=== PATIENT | female | born 1985 | race Caucasian/White ===

== ENCOUNTER 2025-05-22 05:06 | Inpatient (IN) | payer MEDICARE, SELFPAY ==
[2025-05-21 21:43] VITALS: BP 174/116
[2025-05-21 22:48] VITALS: BMI 24.5
[2025-05-21 22:54] VITALS: BP 152/107
[2025-05-21 23:26] VITALS: BP 160/100
[2025-05-22] VITALS (20 sets, daily range): BP systolic 129–185; BP diastolic 82–145; BMI 23.0
[2025-05-22] MEDS: ZOFRAN ODT (ORALLY DISINTEGRATING) 4 MG PO ×2 (01:00→02:59)
[2025-05-22] MEDS: BELBUCA 300 MCG BUCCAL ×5 (01:00→20:29)
--- NOTE | 2025-05-22 01:02 | ED.GENMED ---
History of Present Illness
General
Chief Complaint: Swelling
Source: patient
Exam Limitations: none
Time Seen by Provider: 05/22/25 00:23
Nursing documentation reviewed up to this point in time: agreed with
History of Present Illness
History of Present Illness:
39-year-old female brought in by police for evaluation she was in an Uber, apparently the [employer] driver license reviewing officer was arrested and the police ran the patient's information she had a 4-year-old warrant and she was subsequently arrested patient is a fentanyl
addict, last used at 6pm she has wounds on her bilateral shins, her abdomen, index finger, she was told by her physician recently she should be admitted to the hospital for an infection because when she stands up she gets dizzy--- earlier today her
finger was swollen she took a Bactrim x 1 and it felt better, tells me that she was on methadone previously that does not work for her, tells me she cannot take Suboxone because it makes her heart rate fast although when she was admitted to
[facility] previously she was given 15 mg of IV Dilaudid that made her feel much better she would like that this evening
Phy Exam
Physical Exam
Physical Exam:
Physical Exam
General: Nontoxic disheveled anxious
Neck: No jaundice scar tissue in her neck bilateral
Heart: s1/s2 regular rate and rhythm, no murmur. equal radial pulses.
Lungs: no acute respiratory distress. clear bilaterally
Abdomen: Nontender
Neuro: alert and oriented. no focal neurological deficits
Skin: Black eschar on the right merino and left merino mild erythema without anju fluctuance
Psychiatric: Cooperative disheveled anxious
Extremities: no edema.
Course
Orders/Labs/Results
Orders:
Orders
05/22/25 00:33
Hand, Left 3 View [CR Hand - Left Min 3 Views] Urgent
Comment:
Reason For Exam: swelling wound
Tib/Fib, Right 2 View [CR Leg Tibia/fibula Right 2 Vw] Urgent
Comment:
Reason For Exam: wound
05/22/25 00:34
Ondansetron Orally Disint [Zofran Odt (Orally Disintegrating)] 4 mg PO NOW STA
Test Result ONCE
CR Leg Tibia/fibula Left 2 Vw Urgent
Comment:
Reason For Exam: wound
05/22/25 00:45
Buprenorphine HCl [Belbuca] 300 mcg BUCCAL BID
05/22/25 02:56
Ondansetron Orally Disint [Zofran Odt (Orally Disintegrating)] 4 mg PO NOW STA
05/22/25 03:27
HYDROmorphone [Dilaudid] 1 mg IV NOW STA
05/22/25 03:42
CRP [C-Reactive Protein] Urgent
Complete Blood Count/With Diff Urgent
Comprehensive Metabolic Panel Urgent
ESR [Erythrocyte Sed Rate] Urgent
HCG, Serum Qualitative Screen Urgent
Blood Culture Q30M
ABRAHAN Source: Blood/Venous
Specimen Description:
05/22/25 03:45
Blood Culture Q30M
ABRAHAN Source: Blood/Venous
Specimen Description:
05/22/25 04:13
diazePAM [Valium Injection] 10 mg IM NOW STA
05/22/25 04:20
diazePAM [Valium Injection] 10 mg IV NOW STA
05/22/25 04:38
Admit/Transfer Patient As Directed
Co-Sign Provider:
Level of Care: Inpatient admission
Assign to:: ICU
Physician / Group: Krishna
Diagnosis: Opioid and Xylazine withdrawal
Reason for Hospitalization: opioid and Xylazine withdrawal
Expected length of stay greater than two midnights?: Yes
ELOS- Estimated Length of Stay in days: 2
I certify the patient meets the requirements for IP care: Yes
PRN Pain Medication Management As Directed
May give lesser potent ordered pain med per pt: Yes
preference::
Protocol:: Medication orders for pain may be administered in a
manner that supports deferring to patient preference
when the pt is:
- Requesting an ordered lesser potent pain medication.
Least to most potent pain medications are defined
as: acetaminophen < NSAID < tramadol < opioids
(morphine, oxycodone, hydromorphone).
- Requesting a lesser dose of the same medication IF
ORDERED.
- Requesting a less intrusive route of administration
if both routes are prescribed by the provider (PO <
IV).
05/22/25 04:46
HYDROmorphone [Dilaudid] 2 mg IV NOW STA
05/22/25 04:48
PRN Pain Medication Management As Directed
May give lesser potent ordered pain med per pt: Yes
preference::
Protocol:: Medication orders for pain may be administered in a
manner that supports deferring to patient preference
when the pt is:
- Requesting an ordered lesser potent pain medication.
Least to most potent pain medications are defined
as: acetaminophen < NSAID < tramadol < opioids
(morphine, oxycodone, hydromorphone).
- Requesting a lesser dose of the same medication IF
ORDERED.
- Requesting a less intrusive route of administration
if both routes are prescribed by the provider (PO <
IV).
05/22/25 04:49
CeFAZolin 2 GRAM [Ancef] 2 grams in 10 ml IV NOW
05/22/25 05:03
Fentanyl, Urine Routine
05/22/25 06:54
0.9% Sodium Chloride [Nss (Preservative Free)] See Protocol IV PRN PRN
Clonidine [Catapres] 0.1 mg PO Q6HPRN PRN
HydrOXYZINE [Atarax] 50 mg PO Q6HPRN PRN
Ketorolac [Toradol] 10 mg IV Q6HPRN PRN
Naloxone [Narcan] 0.4 mg IV Q5MPRN PRN
Ondansetron Injectable [Zofran] 4 mg IV Q6HPRN PRN
Oxycodone [Roxicodone] 20 mg PO Q4HPRN PRN
Tizanidine [Zanaflex] 2 mg PO Q6HPRN PRN
05/22/25 06:54
Electrocardiogram (*1) Routine
Reason for Study: QTc Monitoring
Comment: if not already done in ED
Case Management Consult ONCE
Case Management Consult: Other
Comment: opioid withdrawal
WOUND/OSTOMY CONSULT Routine
Reason for Consult: injection site wounds
Medical Records Request [Obtain Records] As Directed
Dates of Information to be Released: 12/23/2024 to 05/21/2025
Type of Information Requested: Entire Record
Obtain Records from: [facility]
DX Deep Vein Thrombosis Video Routine
05/22/25 07:20
diazePAM [Valium Injection] 10 mg IM ONCE PRN PRN
05/22/25 08:00
Buspirone [Buspar] 5 mg PO BID
Clonidine [Catapres] 0.1 mg PO TID
Gabapentin [Neurontin] 800 mg PO TID
Oxycodone Controlled Release [Oxycontin (Controlled Release)] 40 mg PO Q8
Pantoprazole [Protonix] 20 mg PO DAILY
Propranolol [Inderal] 10 mg PO BID
Sertraline HCl [Zoloft] 100 mg PO DAILY
05/22/25 08:51
Urine Drug Abuse Screen Routine
Date Specimen was Collected: 05/22/25
Time Specimen was Collected: 08:50
05/22/25 12:00
Buprenorphine HCl [Belbuca] 300 mcg BUCCAL Q4
05/22/25 13:00
CeFAZolin 2 GRAM [Ancef] 2 grams in 10 ml IV Q8H
05/22/25 16:00
Acetaminophen [Tylenol] 1,000 mg PO Q8
05/22/25 18:00
Enoxaparin Sodium [Lovenox] 40 mg SC QPM
05/22/25 22:00
Quetiapine Fumarate [Seroquel] 200 mg PO HS
05/23/25 03:40
Iron IN AM
Total Iron Binding IN AM
05/23/25 08:00
Buprenorphine [Subutex] 2 mg SL QID
Polyethylene Glycol Powder [Miralax] 17 grams PO DAILY
05/24/25 08:00
Buprenorphine [Subutex] 4 mg SL QID
Oxycodone Controlled Release [Oxycontin (Controlled Release)] 20 mg PO Q8
05/25/25 04:41
Buprenorphine [Subutex] 2 mg SL Q4HPRN PRN
05/25/25 08:00
Buprenorphine [Subutex] 8 mg SL BID@0800,1999
05/26/25 08:00
Buprenorphine [Subutex] 16 mg SL DAILY@0800
Abnormal Lab Results
05/22/25 05/22/25
03:42 05:03
WBC 13.9 H 10^3/uL
(4.8-10.8)
RBC 3.60 L 10^6/uL
(4.20-5.40)
Hgb 8.8 L g/dL
(12.0-16.0)
Hct 27.1 L %
(37.0-47.0)
MCV 75.3 L fL
(81.0-99.0)
MCH 24.4 L pg
(27.0-31.0)
MCHC 32.5 L g/dL
(33.0-37.0)
RDW 16.1 H %
(11.5-14.5)
Plt Count 417 H 10^3/uL
(130-400)
Abs Immat Gran (auto) 0.1 H 10^3/uL
(0-0.05)
Absolute Neuts (auto) 12.8 H 10^3/uL
(1.4-6.5)
Absolute Lymphs (auto) 0.5 L 10^3/uL
(1.2-3.4)
Neutrophils % 92.4 H %
(42.2-75.2)
Lymphocytes % 3.9 L %
(20.5-51.1)
ESR 37 H mm/hour
(0-20)
Creatinine 0.5 L mg/dL
(0.6-1.0)
Glucose 118 H mg/dl
(70-99)
Urine Fentanyl Screen Positive H
(Negative)
05/22/25 03:42
05/22/25 03:42
Vital Signs
Initial and Last Documented VS:
Initial Vital Signs
Temp Pulse Resp BP Pulse Ox
98.7 F 125 15 174/116 100
05/21/25 21:43 05/21/25 21:43 05/21/25 21:43 05/21/25 21:43 05/21/25 21:43
Last Documented Vital Signs
Temp Pulse Resp BP Pulse Ox
98.0 F 113 22 137/106 97
05/24/25 03:14 05/24/25 06:00 05/24/25 06:00 05/24/25 06:00 05/24/25 06:00
Procedures
Central Line
Right Femoral:
Indication for procedure:: IV access
Procedure completed by: Dr. Adama Echevarria
Consent form signed: No
If no, reason: Emergency procedure
Anesthesia: 1% Lidocaine with Epi
Central line lumen: triple
Number of attempts: 3
Central line complications: none
Sterile dressing applied?: Yes
Additional information:
Verbal consent, timeout, ultrasound guidance
*Pulse Oximetry
SaO2: 97
Oxygen Mode of Delivery: Room air
Patient hypoxic: no
*Critical Care Note
Total Time (30-74mins, 75-104mins- exclusive of procedures): 32
Update Note
Update Note:
2 AM update multiple attempts at intravenous access by nursing IV team unsuccessful patient was given sublingual Zofran and buccal buprenorphine
2:40 AM external jugular unable to be cannulated, right femoral unable to access
Right groin triple-lumen placed by Dr. Echevarria with u/s guidance
ED Attending Note
-
Portions of this chart may have been created with voice recognition software.� Occasional wrong word or��sound alike� substitutions may have occurred due to the inherent limitations of voice recognition software.
Discharge Plan
Departure
Patient Disposition: Admit
Date of Disposition: 05/22/25
Time of Disposition: 03:53
Admit to: IMU
Presentation/result/management discussed w/ accepting MD/DO: Hospitalist
Patient with high blood pressure during this ER visit?: Yes
Condition: Fair
Covid-19: Not Applicable
Discharge Problem:
Acute narcotic withdrawal
Interventions
Interventions:
*Risk Screen - Suicide Last Done: 05/21/25 21:43
*General Assessment Last Done: 05/21/25 21:43
*Neglect/Abuse Screening Last Done: 05/21/25 21:43
*ED- Fall Risk Assessment Last Done: 05/22/25 06:45
*ED COVID-19 Vaccine History Last Done: 05/21/25 21:43
*Nursing Disposition Last Done: 05/22/25 06:45
ED- Cardiac Assessment Last Done: 05/21/25 22:55
ED- Pulmonary Assessment Last Done: 05/21/25 22:55
ED-Skin Assessment Last Done: 05/22/25 00:37
Discharge Date and Time
Discharge Date/Time: 05/22/25 06:50
--- NOTE | 2025-05-22 02:45 | VATNOTE ---
MULTIPLE ATTEMPTS TO ESTABLISH A PERIPHERAL IV SITE AND OBTAINED ORDERED LABS W/O SUCCESS. THREE ATTEMPTS TO INSERT A ML WERE ALSO UNSUCCESSFUL. PROVIDER AT BEDSIDE. ATTEMPTED EJ W/O SUCCESS. TO INSERT A FEMORAL LINE WHEN PT OUT OF BATHROOM. VAT TO
FOLLOW. PCN AWARE OF INTERVENTION AND PLAN OF CARE.
[2025-05-22] MEDS: DILAUDID 1 MG IV (03:34)
[2025-05-22 04:02] LABS: Hematocrit 27.1 % (37.0-47.0); Hemoglobin 8.8 g/dL (12.0-16.0); Mean Corp Hgb Conc. 32.5 g/dL (33.0-37.0); Mean Corpuscular Volume 75.3 fL (81.0-99.0); Nucleated Red Blood Cells % 0 %; Platelet Count 417 10^3/uL (130-400); Red Cell Dist. Width 16.1 % (11.5-14.5)
--- NOTE | 2025-05-22 04:15 | HPS.HSE ---
Family Physician
-
Family Physician: Rodolfo Hansen MD
Chief Complaint
-
Finger swelling, opioid dependence/withdrawal
History of Present Illness
This is a 39-year-old with past medical history of narcotic dependence and history of withdrawal with last episode about 6 weeks ago who presents to the emergency department with swelling of the left index finger and acute narcotic withdrawal.
Patient was brought in by police when she was found to have a 4-year-old warrant and was subsequently arrested. She reports longstanding use of fentanyl and her last use was around 6 PM. She states she uses 8-12 bags of fentanyl daily and she
injects directly into the skin including the bilateral lower extremities as well as abdomen and upper extremities. She reported at her last withdrawal episode was 6 weeks ago when she was hospitalized at [facility] and required ICU stay. She says she
did not respond very well to Suboxone but had significant improvement after 50 mg of IV Dilaudid given. She said a longstanding anticoagulation was discontinued and it was unclear why. She was discharged but she did not follow-up with any rehab.
She states that she has previously been on methadone but did not work.
She reports that she had ulceration of left index finger and she applied a bandage about 1 days ago. Over the last 24 hours she reports that she has had increased swelling redness and pain in that finger. She took Bactrim and she reported that the
PMD told her that she needed to go to the hospital.
Medical History
Past Medical History
Past Medical History: Reports Other (Fentanyl dependence, history of DVTs, anxiety/depression, chronic anemia )
Past Surgical History: Reports Bowel Resection, Gynocological, Tonsilectomy and Other (Pneumonectomy)
Social History
Tobacco: Smoker
Alcohol: None
Drug: Narcotics and IVDA
Personal: Single
Living: Nursing Home
Employment: Not Employed
Family History
Family History: Not pertinent
Allergies / Home Medications
Allergies reflects when Allergies were last updated in [employer].
Home Medications with original date entered in [employer]
Allergy/Medication List:
Allergies
Allergy/AdvReac Type Severity Reaction Status Date / Time
Corticosteroids Allergy Unknown Verified 05/21/25 21:48
(Glucocorticoids)
Home Medications
clonidine HCl 0.1 mg tablet 0.1 mg PO TID 05/21/25
quetiapine 200 mg tablet (Seroquel) 200 mg PO HS 05/21/25
sertraline 100 mg tablet (Zoloft) 100 mg PO DAILY 05/21/25
Review of Systems
-
Constitutional: Reports No Symptoms
EENT: Reports No Symptoms
Respiratory: Reports No Symptoms
Cardiac: Reports Diaphoresis
Abdomen/GI: Reports Abdominal Pain, Nausea and Vomiting
: Reports No Symptoms
Musculoskeletal: Reports Joint Pain and Joint Swelling
Skin: Reports Rash
Neurological: Reports Headache
Endocrine: Reports No Symptoms
Hematologic/Lymphatic: Reports No Symptoms
Psych: Reports Anxiety
Physical Exam
Vital Signs
Vital Signs
Temp Pulse Resp BP Pulse Ox
98.7 F 113 13 165/93 96
05/21/25 21:43 05/22/25 04:04 05/22/25 03:00 05/22/25 04:04 05/22/25 04:00
Physical Exam
General: Other (ill appearing, )
HEENT: NormoCephalic, Moist mucous membranes, Atraumatic and PERRLA; No Oxygen
Respiratory: Clear
Cardiac: S1/S2 and Tachycardia; No Murmur or Rub
GI: Soft, Non Tender, Non Distended and Normal Bowel Sounds; No Organomegaly
Rectal: Deferred by Provider
Genito-urinary: Deferred by me
Musculoskeletal: No Clubbing, No Cyanosis and No Edema
Skin: Rash (necrotizing circular lesions on the bilateral lower extremities. There is erythematous swelling of the left index finger. Normal finger ROM.)
Neuro: AO x 3 and Tremors
Psych: Agitated
Laboratory Results
-
05/22/25 03:42
Data Reviewed
-
Lab Data: Labs Reviewed by me
Old Records: Reviewed
Impression/Plan
-
IMPRESSION:
39-year-old with history of opioid dependence coming into the emergency department with swelling of the left index finger and found to be in acute opioid withdrawal. Last opioid use was at 6 PM. She is about 8-12 bags of IV fentanyl a day and
admits to having xylazine in supply. She also admits to Xanax dependence as well as tobacco dependence. Imaging of the involved skeletal regions shows no acute trauma.
PLAN:
Fentanyl withdrawal -acute opioid withdrawal, last used at 6 PM here with cellulitis of the left index finger
- Admit to IMU given severity of withdrawal
- Started on buprenorphine micro dosing protocol with adjunctive medication
- IV fluids, antiemetics
- May need Precedex giving likely xylazine Co. withdrawal
- Chronic injection sites noted, wound care consult did not appear to be acutely infected
Cellulitis -left index finger swelling and erythema. No foreign body. Joint does not appear to be affected with full range of motion. WBC greater than 13
- IV cefazolin for now
- MRSA swab
- Blood cultures afebrile
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
-holding AC for now
- Obtain records from [facility] to determine reason for discontinuation
Anemia -chronic microcytic anemia
-Trend for now
- Iron indices in a.m.
DVT prophylaxis�out of the subcu
CODE STATUS�full code
[2025-05-22 04:21] LABS: HCG, Serum Qualitative Screen Negative
[2025-05-22] MEDS: VALIUM INJECTION 10 MG IV (04:21)
[2025-05-22 04:22] LABS: ALT (SGPT) 13 U/L (0-35); AST (SGOT) 18 U/L (14-36); Albumin 4.0 g/dl (3.5-5.0); Alkaline Phosphatase 90 U/L (38-126); Blood Urea Nitrogen 12 mg/dl (7-17); Calcium 8.9 mg/dl (8.4-10.2); Carbon Dioxide 27 mmol/L (22-30); Chloride 106 mmol/L (98-107); Estimated Creatinine Clearance 119 ml/min; Glucose 118 mg/dl (70-99); Potassium 3.9 mmol/L (3.5-5.1); Sodium 139 mmol/L (135-145); Total Protein 7.3 g/dl (6.3-8.2); eGFR > 60.00
[2025-05-22 04:30] LABS: C-Reactive Protein < 5.00 mg/L (0.0-10.00)
[2025-05-22] MEDS: DILAUDID 2 MG IV (04:58)
[2025-05-22] MEDS: ANCEF 10 IV (04:59)
[2025-05-22] MEDS: COMPAZINE 10 MG IV (05:23)
[2025-05-22] MEDS: BENADRYL 25 MG IV ×3 (06:16→13:42)
[2025-05-22] MEDS: OFIRMEV 100 IV (06:29)
--- NOTE | 2025-05-22 07:11 | CON.INTV ---
Consultation
Consultation Request
Date/Time Consultation Requested: 05/22/25
Date/Time Consultation Performed: 05/22/25
Performing Provider: Rosaline
Reason for Consultation: Overdose
Medical History
-
History of Present Illness:
Patient is a 39-year-old F with past medical history of narcotic dependence and history of withdrawal presenting to ER in acute narcotic withdrawal. Patient was brought in by police when she was found to have a 4-year-old warrant and was
subsequently arrested. She reports longstanding use of fentanyl and her last use was around 6 PM day of admission. She states she uses 8-12 bags of fentanyl daily and she injects directly into the skin including the bilateral lower extremities as
well as abdomen and upper extremities. She reported at her last withdrawal episode was 6 weeks ago when she was hospitalized at [facility] and required ICU stay. She says she did not respond very well to Suboxone but had significant improvement
after 50 mg of IV Dilaudid given. She said a longstanding anticoagulation was discontinued and it was unclear why. She was discharged but she did not follow-up with any rehab. She states that she has previously been on methadone but did not work.
Of note, she has complaints of swelling of the left index finger. She reports that she had ulceration of left index finger and she applied a bandage about 1 days ago. Over the last 24 hours she reports that she has had increased swelling redness
and pain in that finger. She took Bactrim and she reported that the PMD told her that she needed to go to the hospital. On BL LE she has numerous wounds with eschar of various stages of healing.
Past Medical History
Past Medical History: Other (see list below)
Social History
Tobacco: Non-smoker
Alcohol: None
Drug: IVDA
Family History
Family History: Reviewed & Not Pertinent
Allergies / Home Medications
Allergies
Allergy/AdvReac Type Severity Reaction Status Date / Time
Corticosteroids Allergy Unknown Verified 05/21/25 21:48
(Glucocorticoids)
Home Medications
�Medication �Instructions �Recorded �Confirmed �Last Taken �Type
clonidine HCl 0.1 mg tablet 0.1 mg PO TID 05/21/25 05/21/25 Unknown History
quetiapine 200 mg tablet (Seroquel) 200 mg PO HS 05/21/25 05/21/25 Unknown History
sertraline 100 mg tablet (Zoloft) 100 mg PO DAILY 05/21/25 05/21/25 Unknown History
buprenorphine 8 mg-naloxone 2 mg 1 film TID 05/22/25 05/22/25 Unknown History
sublingual film
buspirone 5 mg tablet 5 mg PO BID 05/22/25 05/22/25 Unknown History
gabapentin 400 mg capsule 800 mg PO TID 05/22/25 05/22/25 Unknown History
propranolol 10 mg tablet 10 mg PO BID 05/22/25 05/22/25 Unknown History
Review of Systems
-
History Source: Patient
All other systems: Negative unless noted
Vitals / Labs / Diagnostic Testing
Vital Signs
Temp Pulse Resp BP Pulse Ox
98.8 F 93 16 178/96 98
05/22/25 07:07 05/22/25 07:00 05/22/25 07:00 05/22/25 07:00 05/22/25 06:00
Lab Data
05/22/25 03:42
05/22/25 03:42
Diagnostic Testing:
Physical Exam
-
HEENT: Normocephalic, Anicteric and Moist Mucous Membranes
Cardiovascular: S1/S2 and Regular Rhythm
Respiratory: Clear and Non-Labored Respirations
GI: Soft, Non Distended and Non Tender
Neurology: Awake, Alert, Oriented and No Motor Deficits
Skin: Warm, Dry and Other (skin lesions)
General: Comfortable and Other (NAD)
Assessment
-
Patient is a 39-year-old F with past medical history of narcotic dependence and history of withdrawal presenting to ER in acute narcotic withdrawal. Patient was brought in by police when she was found to have a 4-year-old warrant and was
subsequently arrested. She reports longstanding use of fentanyl and her last use was around 6 PM day of admission. She states she uses 8-12 bags of fentanyl daily and she injects directly into the skin including the bilateral lower extremities as
well as abdomen and upper extremities. She reported at her last withdrawal episode was 6 weeks ago when she was hospitalized at [facility] and required ICU stay. Of note, she has complaints of swelling of the left index finger. On BL LE she has
numerous wounds with eschar of various stages of healing. Admitted to ICU for acute w/d.
Acute narcotic withdrawal
History of fentanyl/xylazine overdose
Leukocytosis
Anemia
Thrombocytosis
urine fentanyl positive
Plan
No current signs of metabolic encephalopathy or MS changes/following commands
She is currently complaining of w/d symptoms, on w/d protocol
History of IVDU, multiple admissions
Pain/sedation: PRN
RASS goals: 0
Hemodynamically stable, not requiring pressors.
Cardiac history reviewed-none
Monitor on telemetry
Oxygen needs: stable on RA
Prior history of lung disease: none
Supplemental O2 as indicated to maintain sats > 89%
No prior chest imaging for review
NPO, resume diet when able
[employer] recommendations
Aspiration precautions, HOB > 30 degrees
Speech therapy eval can be considered if at elevated risk
GI prophylaxis if indicated
Creat at baseline, no history of renal disease
Void trials
Follow urine output, critical I/Os
Replete electrolytes as needed
Mild leukocytosis as noted, she has skin lesions related to IV drug use
Started on empiric antibiotics-for cellulitis coverage
Can likely stop coverage over 5 days
Follow fever trend, WBC count
CBC stable, no signs of bleeding or coagulopathy.
DVT prophylaxis as assessed based on risk, including mechanical SCDs
Can transfuse if indicated for Hb <7, plt < 10
INR WNL
No prior h/o diabetes or thyroid disease
Monitor accuchecks PRN/SS coverage if needed
We will transfer out of ICU, ongoing management for withdrawal per team. We will sign off upon transfer.
Diagnostic Data
Reports and relevant images were personally reviewed.
Critical Care time 51 mins -- The patient is admitted for acute critical illness for the treatment of vital organ failure and/or prevention of further life-threatening conditions. Total care includes time spent in review of history, physical exam,
medications, hemodynamic/ventilator parameters, laboratory data, imaging and discussion with house staff, pharmacy, respiratory therapy, marble setter, and nursing.
[2025-05-22] MEDS: TORADOL 10 MG IV ×2 (07:21→13:43)
[2025-05-22] MEDS: ZOFRAN 4 MG IV ×3 (07:23→23:11)
[2025-05-22] MEDS: ZANAFLEX 2 MG PO ×2 (07:24→15:58)
[2025-05-22] MEDS: BUSPAR 5 MG PO ×2 (07:24→20:28)
[2025-05-22] MEDS: ZOLOFT 100 MG PO (07:24)
[2025-05-22] MEDS: CATAPRES 0.1 MG PO ×4 (07:25→22:31)
[2025-05-22] MEDS: VALIUM INJECTION 10 MG IM (07:39)
[2025-05-22] MEDS: NEURONTIN 800 MG PO ×3 (07:40→22:31)
[2025-05-22] MEDS: INDERAL 10 MG PO ×2 (07:44→17:55)
[2025-05-22] MEDS: UNASYN IV ×3 (07:49→20:27)
[2025-05-22] MEDS: OXYCONTIN (CONTROLLED RELEASE) 40 MG PO ×2 (08:20→15:01)
[2025-05-22] MEDS: PROTONIX 20 MG PO (08:20)
--- NOTE | 2025-05-22 08:31 | W.PN.HOSP.TC ---
Addendum entered and electronically signed by Mukesh De MD 05/22/25 19:54:
Attending Addendum-
I saw and evaluated the patient. I reviewed the resident�s note and agree with findings and plan as documented in the resident�s note. Sub: 'can i get some dilaudid? I feel awful! Im crawling out of my skin and im shaky!' Has been agitated per
nursing.Full 12 point ROS reviewed and negative except as documented Exam: Vitals reviewed in chart GEN-NAD heart tachycardic lungs CTA B/L abd soft NT ND pos BS LE no edema Skin multipl areas of skin ulcerations, left index finger red warm
Plan:
# Fentanyl/Xylazine Withdrawal /OUD - SIRS related to withdrawal
- transfer out of ICU->IMU
- uses 8-16 bags of fentanyl plus tranq per day and 2 bars (4mg) of xanax per day per patient
- cont close monitoring via COWS
- supportive care
- cont buprenorphine micro dosing protocol with adjunctive opioids
- Chronic injection sites noted, wound care consult
# Cellulitis -left index finger
- also with multiple skin ulcerations related to injection of tranq
- cont cefazolin
- MRSA swab
- Blood cultures - P
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
-holding AC for now
-Obtain records from [facility] to determine reason for discontinuation
# Anemia -chronic microcytic anemia
-Trend
# Tobacco Abuse- start cindy patch, advised to quit
# Depression- cont seroquel and sertraline
DVT prophylaxis�lovenox
CODE STATUS�full code
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
Original Note:
Today's Communication/Plan
-
Monitor CBC, CMP
Supportive Care
TT Pharmacist
Assessment / Plan
Assessment / Plan
#History of fentanyl/xylazine overdose
# Acute narcotic withdrawal
-Buprenorphine, IV fluid, Antiemetic, clonidine, oxycodone
-COWS scoring 22- Moderate withdrawal
-Following Buprenorphine Microdosing protocol
-Supportive Care, Monitor VS
-Precedex?
#Cellulitis- left index finger erythema, swelling
-leukocytosis
-Wound culture pending
-MRSA- nose swab pending
#Multiple Skin wounds from Xylazine
-Wound Care Consult
-Dressing as indicated
-Ampicillin Sodium/Sulbactam Sodium
-Mupirocin
#History of multiple DVT's
-Enoxaparin Sodium
-records?
#Microcytic Anemia
Anticipated Discharge: 24 - 48 hours
Subjective/Interval History
-
Date of Service: May 22, 2025
I saw the patient on the bed turning side to side. Looks uncomfortable and agitated. Complaints about severe back pain, abdominal pain, vomiting every 10 mins, having 3 bm last 3hrs. BM has small amount blood reports hemorrhoids. Reports her chest
is pounding, sweating and asks for 15mg dilaudid. She uses 16-18bags fentanyl and 2 bars Xanax daily. She reports smoking every 15mins.
Objective Data
-
Labs:
Laboratory Results
05/22/25
03:42
WBC 13.9 H
Hgb 8.8 L
Hct 27.1 L
Plt Count 417 H
Sodium 139
Potassium 3.9
Chloride 106
Carbon Dioxide 27
BUN 12
Creatinine 0.5 L
Glucose 118 H
Calcium 8.9
Total Bilirubin 0.3
AST 18
ALT 13
Alkaline Phosphatase 90
Vital Signs:
Vital Signs
Temp Pulse Resp BP Pulse Ox
98.8 F 93 16 178/96 98
05/22/25 07:07 05/22/25 07:00 05/22/25 07:00 05/22/25 07:00 05/22/25 06:00
Review of Systems
-
History Source: Patient
Constitutional: Reports Chills
EENT: Reports No Symptoms Reported
Respiratory: Reports No Symptoms
Cardiac: Reports Palpitations
Abdomen/GI: Reports Abdominal Pain, Nausea, Vomiting and Bloody Stools
Breast: Reports Skin Changes
Genitourinary: Reports No Symptoms
Musculoskeletal: Reports Edema and Other
Skin: Reports Rash and Other (crawling feeling)
Neuro: Reports Tremors
Endocrine: Reports No Symptoms
Hematologic / Lymphatic: Reports No Symptoms
Psych: Reports Anxious
Physical Exam
-
General: Appears in Distress, Pain, Chills and Sweats
HEENT: Normocephalic and Atraumatic
Respiratory: Clear to Auscultation
Cardiac: S1/S2 and Tachycardic
Breast: Skin Changes
GI: Soft, Nontender and Nondistended
Rectal: Deferred by Provider
Genito-urinary: Deferred by me
Musculoskeletal: Edema, Right Lower Extrem and Edema, Left Lower Extrem
Skin: Other (multiple ulcers all over the skin)
Neuro: AO x 3
Psych: Agitated
[2025-05-22] MEDS: ATARAX 50 MG PO (08:45)
[2025-05-22] MEDS: ROXICODONE 20 MG PO ×2 (09:27→20:28)
--- NOTE | 2025-05-22 10:02 | PTCARENOTE ---
report received. aaox3. going through active withdrawal. pt tremulous. sinus tach up to 150's. all other signs stable. pt vomiting continuously. prn meds given. (see mar). plan of care updated. 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 will follow opioid withdrawal
protocol. no guards present at this time.
--- NOTE | 2025-05-22 10:16 | WOUNDNOTE ---
L CALF (LATERAL POSTERIOR)
--- NOTE | 2025-05-22 10:17 | WOUNDNOTE ---
[facility] RN note: Patient admitted with opioid and Xylazine withdraw, L index finger swelling/pain. Patient from skilled nursing and is single.
See H&P for complete history.
PMH: narcotic independence, smoker, DVT (Eliquis stopped at [facility]).
Wound Location and type/assessment: Patient admitted with: L index finger scabbed vs dry necrotic ulcer with red ecchymotic skin around it an swelling. No crepitus, no pus expressed. L hand Xray-no significant swelling, no fracture. Bilateral full
thickness leg ulcers from IV injections; L merino dry black eschar detached from skin edges. R merino pale pink with some yellow odorous drainage. Dark red ecchymotic skin lesion from IV drug injection on RLQ. R wrist with scabbed ulcer from IV drug
injection. Couple small dry scabs on legs. Scars on body from previous IV injection wounds.
Appetite: c/o intermittent nausea.
Pressure redistribution devices in place: Centrella Max air bed. She can turn self in bed.
Plan: Wounds cleansed with Vashe wound cleanser, dressing applied to L index finger and legs. Patient states she was using Medihoney at home and has Xeroform gauze at home.
Confirmed orders with hospitalist resident and discussed with HALLE Morrison.
Care plan to be updated and will follow as needed.
Recommend follow up at wound care center upon discharge.
--- NOTE | 2025-05-22 10:58 | CM ---
Opiate withdrawal: Initial assessment completed with patient who lives with her ex-boyfriend in a 2nd floor apartment with 15 steps to enter. 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 No DME or in-home services. No HC-POA,
No VA benefits. Patient has had a psychiatric hospitalization at [facility] for suicide attempt in 2023. No follow-up care. PCP is Dr. Rodolfo Hansen. Pharmacy is [facility]. Discharge POC: TBD. [facility] notified.
[2025-05-22] MEDS: ATIVAN 2 MG PO ×2 (11:37→15:58)
[2025-05-22] MEDS: NICODERM TRANSDERMAL 21 MG TRANSDERM (14:40)
[2025-05-22] MEDS: APRESOLINE 10 MG IV (14:41)
[2025-05-22] MEDS: TYLENOL 1000 MG PO (15:01)
--- NOTE | 2025-05-22 15:39 | PTCARENOTE ---
[facility] office to be notified @ [phone] when pt is dc'd.
[2025-05-22] MEDS: LOVENOX 40 MG SC (17:42)
[2025-05-22] MEDS: TYLENOL 650 MG PO (18:07)
[2025-05-22] MEDS: SEROQUEL 200 MG PO (22:31)
[2025-05-23] VITALS (13 sets, daily range): BP systolic 116–148; BP diastolic 78–118; BMI 22.4
[2025-05-23] MEDS: BELBUCA 300 MCG BUCCAL (00:21)
[2025-05-23] MEDS: TYLENOL 1000 MG PO ×4 (00:21→23:28)
[2025-05-23] MEDS: OXYCONTIN (CONTROLLED RELEASE) 40 MG PO ×4 (00:21→23:28)
[2025-05-23] MEDS: UNASYN IV ×4 (03:24→21:31)
[2025-05-23] MEDS: TORADOL 10 MG IV ×3 (03:24→15:07)
[2025-05-23] MEDS: BENADRYL 25 MG IV ×2 (03:25→09:07)
[2025-05-23] MEDS: ZANAFLEX 2 MG PO ×2 (03:31→18:14)
[2025-05-23 04:17] LABS: Hematocrit 30.1 % (37.0-47.0); Hemoglobin 9.5 g/dL (12.0-16.0); Mean Corp Hgb Conc. 31.6 g/dL (33.0-37.0); Mean Corpuscular Volume 76.6 fL (81.0-99.0); Nucleated Red Blood Cells % 0 %; Platelet Count 394 10^3/uL (130-400); Red Cell Dist. Width 16.4 % (11.5-14.5)
--- NOTE | 2025-05-23 04:37 | PTCARENOTE ---
Pt having periods of restlessness and slight agitation over night. COWS score 11. PRN medications given with positive results. Pt incontinent at times of urine. Pt able to make needs known. Call schaffer within reach. Bed alarm on and in lowest
position. Assessment care and vitals as charted.
[2025-05-23 04:50] LABS: ALT (SGPT) 16 U/L (0-35); AST (SGOT) 47 U/L (14-36); Albumin 4.2 g/dl (3.5-5.0); Alkaline Phosphatase 95 U/L (38-126); Blood Urea Nitrogen 13 mg/dl (7-17); Calcium 9.0 mg/dl (8.4-10.2); Carbon Dioxide 28 mmol/L (22-30); Chloride 100 mmol/L (98-107); Estimated Creatinine Clearance 119 ml/min; Glucose 108 mg/dl (70-99); Iron 114 ug/dl (37-170); Magnesium 1.9 mg/dl (1.6-2.3); Potassium 3.6 mmol/L (3.5-5.1); Sodium 135 mmol/L (135-145); Total Iron Binding Capacity 380 ug/dl (265-497); Total Protein 7.8 g/dl (6.3-8.2); eGFR > 60.00
[2025-05-23] MEDS: ZOFRAN 4 MG IV ×2 (06:30→12:59)
[2025-05-23] MEDS: SUBUTEX 2 MG SL ×4 (07:43→21:34)
[2025-05-23] MEDS: PROTONIX 20 MG PO (07:44)
[2025-05-23] MEDS: NEURONTIN 800 MG PO ×2 (07:44→21:36)
[2025-05-23] MEDS: CATAPRES 0.1 MG PO ×3 (07:45→21:31)
[2025-05-23] MEDS: INDERAL 10 MG PO ×2 (07:45→21:36)
[2025-05-23] MEDS: ZOLOFT 100 MG PO (07:45)
[2025-05-23] MEDS: BUSPAR 5 MG PO ×2 (07:45→21:35)
[2025-05-23] MEDS: MIRALAX 17 GRAMS PO (07:45)
[2025-05-23] MEDS: NICODERM TRANSDERMAL 21 MG TRANSDERM (07:45)
--- NOTE | 2025-05-23 08:22 | W.PN.HOSP.TC ---
Addendum entered and electronically signed by Kristal Yanes MD 05/23/25 14:35:
I saw and evaluated the patient independently. I reviewed the resident�s note and agree with findings and plan as documented by Dr. Mccord.
GENERAL: well developed, well nourished, acutely ill appearing female diaphoretic, nauseous
HEENT: NC/AT
HEART: regular rate and rhythm, +S1, +S2--tachycardic
LUNGS : clear to auscultation bilaterally
ABDOM: soft, nontender, nondistended, + bowel sounds
EXT: no cyanosis, clubbing, or edema
NEUROLOGIC: restless
SKIN: multiple skin wounds from previous IV/skin access points for drugs
Acute fentanyl/xylazine withdrawal--on COWS protocol--cont subutex, oxycodone, did give 1 dose of IV dilaudid, clonidine, zofran, etc--watch breathing and pulse ox
Cellulitis with leukocytosis PLUS multiple skin wounds from Xylazine injections (all POA)- left index finger erythema, swelling--follow blood cultures-- cont unasyn for now--wound care consult
Staph epidermidis bacteremia with new low back pain in an IV drug abuser--may be contaminant but can't ignore at this point--concern for osteomyelitis/abscess --repeat blood cultures until clear--apprec ID input--check MRI L/S spine--may need echo
too--hold for now
Vaginal discharge--Wants to be treated for Chlamydia, Gonorrhea--started doxy and gave 1 dose of IM gentamycin--as per ID, pt agreeable to HIV testing
History of multiple DVT's--Enoxaparin Sodium
anemia likely of chronic disease --no iron deficiency by labs
Depression--cont seroquel, sertraline
DVT proph---lovenox
Code status- full code
Original Note:
Today's Communication/Plan
-
MRI lumbar spine w/o contrast
Gentamycin IM 240mg once
Doxycycline 100mg BID PO , 7 days
Assessment / Plan
Assessment / Plan
#History of fentanyl/xylazine overdose
# Acute narcotic withdrawal
-Buprenorphine, IV fluid, Antiemetic, clonidine, oxycodone
-COWS scoring 9
-Following Buprenorphine Microdosing protocol
-Supportive Care, Monitor VS
-05/23 1 mg IV dilaudid once
#Cellulitis- left index finger erythema, swelling
-leukocytosis
-Wound culture pending
-MRSA- nose swab pending
-blood cx- Staph. epidermidis- ID consulted for drug use bacteremia-> contamination (?)-> repeat bc 05/23
-will repeat Blood culture 05/24
#Vaginal discharge
-Wants to be treated for Chlamydia, Gonorrhea
-Doxycycline 100mg BID, 7Days
-IM Gentamycin 240 mg once
#New back pain
- DD: Bacteremia--> Abcess? Osteomyelitis?
-MRI lumbar spine w/o contrast
#Multiple Skin wounds from Xylazine
-Wound Care Consult
-Dressing as indicated
-Ampicillin Sodium/Sulbactam Sodium
-Mupirocin
#History of multiple DVT's
-Enoxaparin Sodium
-records?
#Microcytic Anemia
-trend
#Depression
cont seroquel, sertraline
DVT prophylaxis-levenox
Code status- full code
Anticipated Discharge: > 48 hours
Subjective/Interval History
-
Date of Service: May 23, 2025
I saw the patient lying in the bed. She is agitated, complains about hot/cold sweats, vomited twice, had 1 loose bm. She asks for help about cravings. She wants 15 mg of Dilaudid. She also has a new lower back pain.
She is concerned about having gonorrhea and chlamydia, requested tx because she has a discharge.
Objective Data
-
Labs:
Laboratory Results
05/23/25
03:40
WBC 14.8 H
Hgb 9.5 L
Hct 30.1 L
Plt Count 394
Sodium 135
Potassium 3.6
Chloride 100
Carbon Dioxide 28
BUN 13
Creatinine 0.5 L
Glucose 108 H
Calcium 9.0
Total Bilirubin 0.6
AST 47 H
ALT 16
Alkaline Phosphatase 95
Vital Signs:
Vital Signs
Temp Pulse Resp BP Pulse Ox
99.0 F 117 23 125/90 100
05/23/25 03:55 05/23/25 04:00 05/23/25 04:00 05/23/25 07:45 05/23/25 04:00
I&O
05/22/25 05/23/25 05/24/25
06:59 06:59 06:59
Intake Total 240 / 240
Output Total 800 / 800
Balance -560 / -560
Review of Systems
-
History Source: Patient
Constitutional: Reports Chills and Weakness
EENT: Reports No Symptoms Reported
Respiratory: Reports No Symptoms
Cardiac: Reports No Symptoms
Abdomen/GI: Reports Nausea and Vomiting
Breast: Reports No Symptoms
Genitourinary: Reports Vaginal Discharge
Musculoskeletal: Reports Edema and Other
Skin: Reports Rash and Other (crawling feeling)
Neuro: Reports Tremors
Endocrine: Reports No Symptoms
Hematologic / Lymphatic: Reports No Symptoms
Psych: Reports Anxious
Physical Exam
-
General: Appears in Distress, Pain, Chills and Sweats
HEENT: Normocephalic and Atraumatic
Respiratory: Clear to Auscultation
Cardiac: S1/S2 and Tachycardic
Breast: Skin Changes
GI: Soft, Nontender and Nondistended
Rectal: Deferred by Provider
Musculoskeletal: Edema, Right Lower Extrem and Edema, Left Lower Extrem
Skin: Other (multiple ulcers all over the skin)
Neuro: AO x 3
Psych: Agitated
--- NOTE | 2025-05-23 09:24 | PTCARENOTE ---
Assumed care of Pt at shift change; Pt seen in bed, sleeping on/off. Noted to have vomited and urinated in bed - cleaned up Pt. Reported still having 'cravings'. COWS ~ 8; AM meds with oxycontin and subutex provided. Pt drowsy at times and
restless at times. NSR, BP stable; HR ~ 120's at rest, 130's with movement. 2L O2 with 100% SpO2; Will continue to monitor and assess.
[2025-05-23] MEDS: BACTROBAN 2% OINTMENT 1 APPLIC TOPICAL (09:57)
[2025-05-23] MEDS: ATIVAN 2 MG PO ×2 (11:15→18:12)
[2025-05-23] MEDS: DILAUDID 1 MG IV (11:52)
--- NOTE | 2025-05-23 13:13 | CON.ID ---
Consultation
-
Date/Time Consultation Requested: 05/23/2025 1128
Date/Time Consultation Performed: 05/23/2025 1300
Requesting Provider: Dr. Mccord
Performing Provider: Dr. Ellis
Reason for Consultation: Staph epi bacteremia
Chief Complaint / Past History
History of Present Illness
Bessie Mckee is a 39-year-old female with a significant past medical history of IVDA being evaluated regarding Staph aureus bacteremia. History is obtained from chart review along with patient interview, although the patient was unable to provide
significant history for me.
The patient presented to the emergency room on 05/22 brought in by police. 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
outstanding and she was also arrested. Thereafter, she was found to have multiple wounds on her body and she was brought to the hospital for further evaluation and detox. She notes that she has longstanding wounds on her left merino and right lower
extremity. More recently, she developed a wound on her left index finger which is somewhat painful.
In the emergency room, she was found to have a leukocytosis. Blood cultures were obtained, which now reveal growth of Staphylococcus epidermidis in 1 out of 4 bottles. Infectious Diseases is asked to comment on further antimicrobial management.
Past History
Additional Past Medical History:
IVDA
DVT
Anxiety/depression
Additional Past Surgical History:
Bowel resection
Tonsillectomy
Pneumonectomy
Allergy History:
Corticosteroids (Glucocorticoids) Allergy (Verified 05/21/25 21:48)
Unknown
Medications Reviewed: Yes
Current Antibiotics:
Unasyn 3 gm IV q.6 hours
Social History
Tobacco: Smoker
Alcohol: None
Drug: Narcotics and IVDA
Personal: Single
Employment: Not Employed
Family History
Family History: Unable to Obtain
Review of Systems
Vital Signs
Temp Pulse Resp BP Pulse Ox
99.1 F 117 23 125/90 100
05/23/25 07:18 05/23/25 04:00 05/23/25 04:00 05/23/25 07:45 05/23/25 04:00
Physical Exam
Physical Exam
Constitutional: Acutely Ill, Chronically Ill and Non-toxic
Head: Normocephalic
Eyes: Pupils Equal, Pupils Round, No Conjunctival Hemorrhage and Sclera Anicteric
Oral: No Thrush and No Ulcers
Cardiovascular: Regular Rate and S1/S2; Negative S3/S4
Pulmonary: Clear and Non Labored; Negative Wheezes or Rales
Gastrointestinal: Soft, Tender (Dermal gangrene area right lower quadrant), Normal Bowel Sounds, No Rebound and No Guarding
Genito-Urinary: Negative Helms
Extremities: Edema; Negative Cyanosis or Erythema
Wounds:
Left proximal tibia area with unstageable wound with overlying eschar. Freely movable and not adherent to bone. Little periwound erythema
Right lateral calf area wound with slough and mild purulence
Left index finger with dry eschar and some dermal gangrene
Lab / Diagnostic Study Results
05/23/25 03:40
05/23/25 03:40
Abs Immat Gran (auto) 0.2 10^3/uL (0-0.05) H 05/23/25 03:40
Absolute Neuts (auto) 12.7 10^3/uL (1.4-6.5) H 05/23/25 03:40
Absolute Lymphs (auto) 1.1 10^3/uL (1.2-3.4) L 05/23/25 03:40
Absolute Monos (auto) 0.7 10^3/uL (0.1-0.6) H 05/23/25 03:40
Absolute Basos (auto) 0.0 10^3/uL (0-0.2) 05/23/25 03:40
Immature Gran % 1.2 % (0-0.5) H 05/23/25 03:40
Neutrophils % 86.1 % (42.2-75.2) H 05/23/25 03:40
Lymphocytes % 7.7 % (20.5-51.1) L 05/23/25 03:40
Monocytes % 4.9 % (1.7-9.3) 05/23/25 03:40
Eosinophils % 0.0 % (0-6) 05/23/25 03:40
Basophils % 0.1 % (0-2) 05/23/25 03:40
ESR 37 mm/hour (0-20) H 05/22/25 03:42
C-Reactive Protein < 5.00 mg/L (0.0-10.00) 05/22/25 03:42
Microbiology Results
Micro:
05/22/25 03:42 Blood Culture - Preliminary
Blood/Venous No Growth in 24 hours- Final report to follow
05/22/25 03:45 Blood Culture - Preliminary
Blood/Venous Staphylococcus epidermidis : 1 of 2 bottles
Gram Stain - Preliminary
05/22/25 07:57 MRSA Screen - Pending
Nose
05/22/2025 X-ray left tib-fib: no significant soft tissue swelling is appreciated. No osteoblastic or osteoclastic lesions are noted. No significant periosteal reaction.
05/22/2025 X-ray right leg: No significant osteoblastic or osteolytic lesions are seen. Small osteophytes within the medial compartment of the right knee.
Assessment / Plan
IVDA and acute withdrawal
Leukocytosis secondary to above
Initial fever without recurrence
Positive blood culture (1 of 4 bottles) with staph epi from ER draw. Contaminant
Multiple wounds (right leg, left merino, left index finger)
Hx DVT
Anxiety/depression
Recommendations:
Positive blood culture is most likely a contaminant. No need to treat.
Continue with Unasyn for the present for skin wounds.
Would continue with local care to the area. Several of these may ultimately need further debridement.
Check HIV (patient has given verbal consent)
Check hep B and hep C serology.
--- NOTE | 2025-05-23 14:26 | CHAP ---
Bessie said, 'Terrible,' when asked how she was doing. She was lethargic during the visit, and said she has no family support. This hog scraper gave assurance that staff is caring about her and wanting the best for her. She welcomed prayer.
Emotional and spiritual support provided, along with assurance of our on-going availability.
[2025-05-23] MEDS: NEURONTIN PO (15:07)
[2025-05-23] MEDS: LOVENOX 40 MG SC (18:14)
[2025-05-23] MEDS: VIBRAMYCIN 100 MG PO (21:34)
[2025-05-23] MEDS: SEROQUEL 200 MG PO (21:35)
[2025-05-24] VITALS (13 sets, daily range): BP systolic 99–144; BP diastolic 72–115; BMI 21.7
--- NOTE | 2025-05-24 02:29 | PTCARENOTE ---
Pt calling 911 in middle of night saying her friend fell in the room and needed help. dispatcher bus and trolley appropriately made aware of Pt situation and having hallucinations. Dispatch reassured there is no need to send police,fire or ems. While on phone
with 911 dispatch multiple RN's to Pt bed side to assess, reorient and give emotional support. Pt able to fall back a sleep with out issue.
[2025-05-24] MEDS: ZANAFLEX 2 MG PO ×2 (03:51→16:17)
[2025-05-24] MEDS: UNASYN IV ×4 (03:51→20:34)
[2025-05-24] MEDS: ROXICODONE 20 MG PO (03:51)
[2025-05-24] MEDS: BACTROBAN 2% OINTMENT 1 APPLIC TOPICAL (04:40)
[2025-05-24 04:41] LABS: Hematocrit 31.4 % (37.0-47.0); Hemoglobin 10.0 g/dL (12.0-16.0); Mean Corp Hgb Conc. 31.8 g/dL (33.0-37.0); Mean Corpuscular Volume 74.6 fL (81.0-99.0); Platelet Count 442 10^3/uL (130-400); Red Cell Dist. Width 16.8 % (11.5-14.5)
[2025-05-24] MEDS: ATIVAN 2 MG PO ×2 (04:45→11:51)
[2025-05-24] MEDS: BENADRYL 25 MG IV ×2 (04:45→23:13)
[2025-05-24 05:03] LABS: ALT (SGPT) 16 U/L (0-35); AST (SGOT) 36 U/L (14-36); Albumin 3.9 g/dl (3.5-5.0); Alkaline Phosphatase 80 U/L (38-126); Blood Urea Nitrogen 21 mg/dl (7-17); Calcium 8.9 mg/dl (8.4-10.2); Carbon Dioxide 31 mmol/L (22-30); Chloride 97 mmol/L (98-107); Estimated Creatinine Clearance 102 ml/min; Glucose 115 mg/dl (70-99); Potassium 3.5 mmol/L (3.5-5.1); Sodium 132 mmol/L (135-145); Total Protein 7.2 g/dl (6.3-8.2); eGFR > 60.00
--- NOTE | 2025-05-24 07:12 | W.PN.HOSP.TC ---
Addendum entered and electronically signed by Kristal Yanes MD 05/24/25 16:05:
I saw and evaluated the patient independently. I reviewed the resident�s note and agree with findings and plan as documented by Dr. Mccord.
GENERAL: well developed, well nourished, acutely ill appearing female appears better today
HEENT: NC/AT
HEART: regular rate and rhythm, +S1, +S2--tachycardic
LUNGS : clear to auscultation bilaterally
ABDOM: soft, nontender, nondistended, + bowel sounds
EXT: no cyanosis, clubbing, or edema
NEUROLOGIC: restless
SKIN: multiple skin wounds from previous IV/skin access points for drugs
Acute fentanyl/xylazine withdrawal--on COWS protocol--cont subutex, oxycodone, clonidine, zofran, etc--watch breathing and pulse ox--had hallucinations--apprec psych--pt wants treatment
Cellulitis with leukocytosis PLUS multiple skin wounds from Xylazine injections (all POA)- left index finger erythema, swelling--follow blood cultures-- cont unasyn for now--wound care consult--possible need for plastic surgery for wound debridement
Staph epidermidis bacteremia with new low back pain in an IV drug abuser--may be contaminant but can't ignore at this point, cultures from 05/23 negative to date--concern for osteomyelitis/abscess --apprec ID input-- MRI L/S spine NORMAL--may need
echo too--hold for now
Vaginal discharge--Wants to be treated for Chlamydia, Gonorrhea--started doxy and gave 1 dose of IM rocephin--HIV pending
History of multiple DVT's--Enoxaparin Sodium
anemia likely of chronic disease --no iron deficiency by labs
Depression--cont seroquel, sertraline
DVT proph---lovenox
Code status- full code
Original Note:
Today's Communication/Plan
-
Psychiatry consult
Consult Plastic surgery on tue wound debridement?
Monitor
Assessment / Plan
Assessment / Plan
#History of fentanyl/xylazine overdose
# Acute narcotic withdrawal
-Buprenorphine, IV fluid, Antiemetic, clonidine, oxycodone
-COWS scoring 9
-Following Buprenorphine Microdosing protocol
-Supportive Care, Monitor VS
-05/23 1 mg IV dilaudid once
-Monitor K level
#Cellulitis- left index finger erythema, swelling
-leukocytosis
- nose swab No MRSA
-blood cx- Staph. epidermidis- ID consulted for drug use bacteremia-> contamination (?)-> repeated (24h (-))
#Multiple Skin wounds from Xylazine
-Wound Care Consult
-Dressing as indicated
-Continue Ampicillin Sodium/Sulbactam Sodium
-Mupirocin
#Hallucination
-Consulted psychiatry
#Vaginal discharge
-Wants to be treated for Chlamydia, Gonorrhea
-Doxycycline 100mg BID, 7Days
-Ceftriaxone 500mg, IM once
#New back pain
- DD: Bacteremia--> Abcess? Osteomyelitis?
-MRI lumbar spine w/o contrast- normal findings
#History of multiple DVT's
-Enoxaparin Sodium
-records?
#Microcytic Anemia
-trend
#Depression
cont seroquel, sertraline
DVT prophylaxis-levenox
Code status- full code
Anticipated Discharge: > 48 hours
Subjective/Interval History
-
Date of Service: May 24, 2025
She is anxious, has extreme cravings, 1 bm, denies vomiting and nausea. She has hallucinations- last night taylor 911 and told them her friend fell on the floor. Says ' give me my keys!!'
Objective Data
-
Labs:
Laboratory Results
05/24/25
04:00
WBC 12.5 H
Hgb 10.0 L
Hct 31.4 L
Plt Count 442 H
Sodium 132 L
Potassium 3.5
Chloride 97 L
Carbon Dioxide 31 H
BUN 21 H
Creatinine 0.7
Glucose 115 H
Calcium 8.9
Total Bilirubin 0.4
AST 36
ALT 16
Alkaline Phosphatase 80
Vital Signs:
Vital Signs
Temp Pulse Resp BP Pulse Ox
98.0 F 113 22 137/106 97
05/24/25 03:14 05/24/25 06:00 05/24/25 06:00 05/24/25 06:00 05/24/25 06:00
I&O
05/23/25 05/24/25 05/25/25
06:59 06:59 06:59
Intake Total 240 / 240 2285 / 2285
Output Total 800 / 800
Balance -560 / -560 2285 / 2285
Review of Systems
-
History Source: Patient
Constitutional: Reports Chills and Weakness
EENT: Reports No Symptoms Reported
Respiratory: Reports No Symptoms
Cardiac: Reports No Symptoms
Abdomen/GI: Reports Abdominal Pain
Breast: Reports No Symptoms
Genitourinary: Reports Vaginal Discharge
Musculoskeletal: Reports Edema and Other
Skin: Reports Rash and Other (crawling feeling)
Neuro: Reports Tremors
Endocrine: Reports No Symptoms
Hematologic / Lymphatic: Reports No Symptoms
Psych: Reports Anxious
Physical Exam
-
General: Appears in Distress, Pain, Chills and Sweats
HEENT: Normocephalic and Atraumatic
Respiratory: Clear to Auscultation
Cardiac: S1/S2 and Tachycardic
Breast: Skin Changes
GI: Soft, Nondistended and Tender
Rectal: Deferred by Provider
Musculoskeletal: Edema, Right Lower Extrem and Edema, Left Lower Extrem
Skin: Other (multiple ulcers all over the skin)
Neuro: AO x 3
Psych: Agitated, Anxious and Other (hallucinations)
[2025-05-24 07:28] LABS: Hepatitis C Antibody Negative (Negative)
--- NOTE | 2025-05-24 08:18 | W.PN.ID1 ---
Date of Service
Date of Service: May 24, 2025
Today's Communication
Continue Unasyn
Assessment / Plan
IVDA and acute withdrawal
Leukocytosis secondary to above
Initial fever without recurrence
Positive blood culture (1 of 4 bottles) with Staph. Epidermidis from ER draw. Contaminant.
Multiple wounds (right leg, left merino, left index finger)
Hx DVT
Anxiety/depression
Recommendations:
Positive blood culture is most likely a contaminant. No need to treat.
Continue with Unasyn for the present for skin wounds.
Would continue with local care to the area. Several of these may ultimately need further debridement.
Check HIV (patient has given verbal consent)
Check hep B and hep C serology.
����������������������������������������������������������
Chief Complaint
-: Bacteremia
Subjective / Review of Systems
Review of Systems: No Fever
Vital Signs / Physical Exam
Vital Signs
Vital Signs
Temp Pulse Resp BP Pulse Ox
98.0 F 113 22 137/106 97
05/24/25 03:14 05/24/25 06:00 05/24/25 06:00 05/24/25 06:00 05/24/25 06:00
Physical Exam
Constitutional: Chronically Ill and Non-toxic
Cardiovascular: S1/S2
Pulmonary: Non Labored
Gastrointestinal: Non Distended
Physical Exam:
Wounds:
Left proximal tibia area with unstageable wound with overlying eschar. Freely movable and not adherent to bone. Little periwound erythema
Right lateral calf area wound with slough and mild purulence
Left index finger with dry eschar and some dermal gangrene
Objective Data
Lab Data
Lab Results
05/24/25 04:00
05/24/25 04:00
ESR 37 mm/hour (0-20) H 05/22/25 03:42
Estimated Creat Clear 102 ml/min 05/24/25 04:00
Total Bilirubin 0.4 mg/dl (0.2-1.3) 05/24/25 04:00
AST 36 U/L (14-36) 05/24/25 04:00
ALT 16 U/L (0-35) 05/24/25 04:00
Alkaline Phosphatase 80 U/L (38-126) 05/24/25 04:00
C-Reactive Protein < 5.00 mg/L (0.0-10.00) 05/22/25 03:42
Most recent labs reviewed.
Micro Results:
05/22/25 03:42 Blood Culture - Preliminary
Blood/Venous No Growth in 48 hours- Final report to follow
05/22/25 07:57 MRSA Screen - Final
Nose No Methicillin Resistant Staphylococcus aureus isolated.
05/23/25 13:18 Blood Culture - Pending
Blood/Venous
05/22/25 03:45 Blood Culture - Preliminary
Blood/Venous Staphylococcus epidermidis
Gram Stain - Preliminary
05/22/2025 X-ray left tib-fib: no significant soft tissue swelling is appreciated. No osteoblastic or osteoclastic lesions are noted. No significant periosteal reaction.
05/22/2025 X-ray right leg: No significant osteoblastic or osteolytic lesions are seen. Small osteophytes within the medial compartment of the right knee.
[2025-05-24] MEDS: MIRALAX 17 GRAMS PO (08:26)
[2025-05-24] MEDS: BUSPAR 5 MG PO ×2 (08:26→20:34)
[2025-05-24] MEDS: ZOLOFT 100 MG PO (08:26)
[2025-05-24] MEDS: NICODERM TRANSDERMAL 21 MG TRANSDERM (08:26)
[2025-05-24] MEDS: SUBUTEX 4 MG SL ×4 (08:26→21:25)
[2025-05-24] MEDS: VIBRAMYCIN 100 MG PO ×2 (08:26→20:34)
[2025-05-24] MEDS: CATAPRES 0.1 MG PO ×3 (08:27→21:24)
[2025-05-24] MEDS: OXYCONTIN (CONTROLLED RELEASE) 20 MG PO ×3 (08:27→23:13)
[2025-05-24] MEDS: TYLENOL 1000 MG PO ×3 (08:27→23:13)
[2025-05-24] MEDS: INDERAL 10 MG PO ×2 (08:27→20:34)
[2025-05-24] MEDS: PROTONIX 20 MG PO (08:27)
[2025-05-24] MEDS: TORADOL 10 MG IV (08:27)
[2025-05-24] MEDS: NEURONTIN PO ×2 (08:28→16:18)
--- NOTE | 2025-05-24 12:35 | CS.PSYCHR ---
Consult Summary - Psychiatry
-
Patient seen by me on 05/24/2025 from 12:35pm-1:10pm
Psychiatry consult for significant Fentanyl and benzo misuse disorders and withdrawal. Chart reviewed and case discussed with primary team. 39-year-old with past history of severe opioid/benzo misuse disorder/withdrawal brought in by police for
swelling of the left index finger and acute narcotic withdrawal. Patient admits to using 8-12 bags of IV fentanyl a day and admits to having xylazine in supply. She injects directly into the skin including bilateral lower and upper extremities and
abdomen. She also uses 2 'Xanax bars' (4mg total) every other day. She reports her last withdrawal episode was approximately 6 weeks ago during which she was hospitalized at [facility] and required ICU stay. She was discharged but she did not
follow-up with any rehab. she states her last rehab was 3 months ago at [facility] where she stayed for 26 days but left early and relapsed. She states that she has previously been on methadone maintenance 130mg daily, but none for the past 4
years. Her longest clean time was on MMT for 1.5 years. She reports a history of bipolar disorder and PTSD. Symptoms are difficult to assess in context of active drug use/withdrawal.
Per nursing, patient has been exhibiting a fluctuant course of confusion with hallucinations and delusions. Last night she called 911 reporting that someone had passed out in her room. She also reported having a prosthetic thumb and a lung removed.
She has intermittent visual hallucinations of people in her room.
UDS + opiates, fentanyl, benzos
MSE- poor eye contact. disheveled. fluctuant cognition. Initially knows she is at [facility] as well as month, year, president. Further in interview she begins having visual hallucinations of birds flying in the room and laughs
inappropriately. Her thought process varies from logical to disorganized. She denies SI/HI. Insight and judgement are poor.
Past psychiatric history- reports diagnoses of bipolar disorder and PTSD. reports one intentional suicide attempt in 2019 with overdose on 'Xanax and 13 bags of dope'. following medications are prescribed by her PCP:
clonidine HCl 0.1 mg tablet 0.1 mg PO TID
quetiapine 200 mg tablet (Seroquel) 200 mg PO HS
sertraline 100 mg tablet (Zoloft) 100 mg PO DAILY
buspar 5mg BID
propranolol 10mg BID
Social hx- Patient was brought in by police when she was found to have a 4-year-old warrant and was subsequently arrested. Live s with ex-boyfriend. 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
D&A history- see above
Family History- denies
A/P- 39 yo female with extensive opioid and benzo misuse disorders and active withdrawal/confusion. Continue fentanyl withdrawal management protocol. Continue current psychiatric medication regimen for now. There is room for dose optimization in the
future but would hold off until acute withdrawal/delirium period has resolved before considering changes. Patient interested in inpatient D&A rehab placement when medically stable. Per case management note, [facility] has been notified. It is to be
determined if this is an option given her legal status.
--- NOTE | 2025-05-24 14:41 | PTCARENOTE ---
Pt with noted hallucinations throughout shift, mentioning seeing and/or hearing people in her room; Talked about friends bringing her cigarettes and someone coming into her room to steal her house keys; Pt found smoking cigarettes in bed - took
lit cigarette from patient and disposed of properly. Security notified to remove cigarettes and transaction manager from Pt. Discussed smoking policy with Pt numerous times prior to incident. Pt has nicotine patch in place on L arm. Will continue to monitor
and assess.
[2025-05-24] MEDS: LOVENOX 40 MG SC (18:17)
[2025-05-24] MEDS: SEROQUEL 200 MG PO (21:25)
[2025-05-24] MEDS: NEURONTIN 800 MG PO (21:25)
[2025-05-25] VITALS (13 sets, daily range): BP systolic 80–147; BP diastolic 56–120
[2025-05-25] MEDS: UNASYN IV ×4 (03:51→20:26)
[2025-05-25] MEDS: ROXICODONE 20 MG PO (04:20)
[2025-05-25] MEDS: ZANAFLEX 2 MG PO (04:20)
[2025-05-25] MEDS: BACTROBAN 2% OINTMENT 1 APPLIC TOPICAL (04:48)
[2025-05-25 04:58] LABS: Hematocrit 33.3 % (37.0-47.0); Hemoglobin 10.9 g/dL (12.0-16.0); Mean Corp Hgb Conc. 32.7 g/dL (33.0-37.0); Mean Corpuscular Volume 75.5 fL (81.0-99.0); Platelet Count 462 10^3/uL (130-400); Red Cell Dist. Width 16.6 % (11.5-14.5)
[2025-05-25 05:23] LABS: Blood Urea Nitrogen 26 mg/dl (7-17); Calcium 8.9 mg/dl (8.4-10.2); Carbon Dioxide 31 mmol/L (22-30); Chloride 97 mmol/L (98-107); Estimated Creatinine Clearance 119 ml/min; Glucose 131 mg/dl (70-99); Potassium 3.4 mmol/L (3.5-5.1); Sodium 133 mmol/L (135-145); eGFR > 60.00
--- NOTE | 2025-05-25 05:50 | PTCARENOTE ---
Pt appearing to get rest through out the night. Respirations even unlabored spo2 97% ra. Pt having more frequent moments of clarity, remembering she called 911 the night before and that she tried smoking in the hospital. Pt also explaining she knows
she is having auditory and visual hallucinations at times. Pt also expressed she feels that she is 'getting better every day'', also saying 'i can never touch that shit again'. Pt becoming tearful. Emotional support given. Call schaffer within reach,
bed alarm on and in lowest position.
--- NOTE | 2025-05-25 07:33 | W.PN.HOSP.TC ---
Today's Communication/Plan
-
[id number] Seroquel
Senna, Simethicon
Plastic surgery consult for sunday
Assessment / Plan
Assessment / Plan
#History of fentanyl/xylazine overdose
# Acute narcotic withdrawal
-Buprenorphine, IV fluid, Antiemetic, clonidine, oxycodone
-COWS scoring 9
-Following Buprenorphine Microdosing protocol
-Supportive Care, Monitor VS
-05/23 1 mg IV dilaudid once
-Monitor K level-- repleted
-Psych TT: 200 mg Seroquel for sleeping difficulty
-Ordered ECG
-Simethicon prn, Senna BID
#Cellulitis- left index finger erythema, swelling
-leukocytosis
- nose swab No MRSA
-blood cx- Staph. epidermidis- ID consulted for drug use bacteremia-> contamination (?)-> repeated (24h (-))
#Multiple Skin wounds from Xylazine
-Wound Care Consult
-Dressing as indicated
-Continue Ampicillin Sodium/Sulbactam Sodium
-Mupirocin
-ID- several of woumds need further debridement-- Will consult Plastic surgery on Sunday
#Hallucination
-Consulted psychiatry
#Vaginal discharge
-Wants to be treated for Chlamydia, Gonorrhea
-Doxycycline 100mg BID, 7Days
-Ceftriaxone 500mg, IM once
#New back pain
- DD: Bacteremia--> Abcess? Osteomyelitis?
-MRI lumbar spine w/o contrast- normal findings
#History of multiple DVT's
-Enoxaparin Sodium
-records?
#Microcytic Anemia
-trend
#Depression
cont seroquel, sertraline
DVT prophylaxis-levenox
Code status- full code
Anticipated Discharge: > 48 hours
Subjective/Interval History
-
Date of Service: May 25, 2025
Overnight she had difficulty sleeping. She is still hallucinating- taking dope putting it on her then it dissappears. She broke her front tooth does not know how it happened. She states bad cravings, requests more buprenorphine. She also states
abdominal pain on the LLQ and extremely stinky gas. No bm since yesterday. Has been consuming only fruits and juice. Requested vanilla ensure. Some nausea, denies vomiting.
Objective Data
-
Labs:
Laboratory Results
05/25/25
04:45
WBC 10.1
Hgb 10.9 L
Hct 33.3 L
Plt Count 462 H
Sodium 133 L
Potassium 3.4 L
Chloride 97 L
Carbon Dioxide 31 H
BUN 26 H
Creatinine 0.6
Glucose 131 H
Calcium 8.9
Vital Signs:
Vital Signs
Temp Pulse Resp BP Pulse Ox
98.5 F 106 21 112/86 97
05/25/25 02:11 05/25/25 06:00 05/25/25 06:00 05/25/25 06:00 05/24/25 21:13
I&O
05/24/25 05/25/25 05/26/25
06:59 06:59 06:59
Intake Total 2285 / 2285 2160 / 2160
Output Total 450 / 450
Balance 2285 / 2285 1710 / 1710
Review of Systems
-
History Source: Patient
Constitutional: Reports Sleep Disturbance
EENT: Reports No Symptoms Reported
Respiratory: Reports No Symptoms
Cardiac: Reports No Symptoms
Abdomen/GI: Reports Abdominal Pain and Nausea
Breast: Reports No Symptoms
Genitourinary: Reports Vaginal Discharge
Skin: Reports Rash (wounds)
Neuro: Reports No Symptoms
Endocrine: Reports No Symptoms
Hematologic / Lymphatic: Reports No Symptoms
Psych: Reports Anxious
Physical Exam
-
General: Appears in Distress
HEENT: Normocephalic and Atraumatic
Respiratory: Clear to Auscultation
Cardiac: S1/S2 and Tachycardic
Breast: Skin Changes
GI: Soft, Nondistended and Tender
Rectal: Deferred by Provider
Skin: Other (multiple ulcers all over the skin)
Neuro: AO x 3
Psych: Agitated, Anxious and Other (hallucinations)
[2025-05-25] MEDS: BUSPAR 5 MG PO ×2 (08:36→20:25)
[2025-05-25] MEDS: ZOLOFT 100 MG PO (08:36)
[2025-05-25] MEDS: SUBUTEX 8 MG SL ×2 (08:36→20:25)
[2025-05-25] MEDS: CATAPRES 0.1 MG PO ×3 (08:36→20:25)
[2025-05-25] MEDS: INDERAL 10 MG PO ×2 (08:36→20:25)
[2025-05-25] MEDS: PROTONIX 20 MG PO (08:36)
[2025-05-25] MEDS: VIBRAMYCIN 100 MG PO ×2 (08:36→20:26)
[2025-05-25] MEDS: TYLENOL 1000 MG PO ×2 (08:36→16:32)
[2025-05-25] MEDS: MIRALAX 17 GRAMS PO (08:37)
[2025-05-25] MEDS: NICODERM TRANSDERMAL 21 MG TRANSDERM (08:37)
[2025-05-25] MEDS: NEURONTIN PO ×2 (08:38→16:35)
[2025-05-25] MEDS: KCL 270 MEQ IV (09:02)
[2025-05-25] MEDS: ATIVAN 2 MG PO ×2 (11:26→17:46)
[2025-05-25] MEDS: SUBUTEX 2 MG SL ×2 (12:23→16:34)
[2025-05-25] MEDS: MYLICON 80 MG PO ×2 (12:24→20:25)
[2025-05-25] MEDS: SENOKOT-S PO (12:30)
--- NOTE | 2025-05-25 14:37 | W.PN.UPDATE ---
Update Note
Progress Note Update
Seen by me on 05/25/2025 from 2:20pm-2:35pm
Psychiatry follow up. Contacted by primary team that patient is threatening to leave AMA because she wants to smoke a cigarette. Patient was offered nicotine gum and is agreeable. She also admits to feeling anxious and is requesting increase in
Ativan or addition of Klonopin. Explained that addition of benzos would not be recommended at this time. We discussed option to add low dose seroquel as a PRN to help with acute anxiety. She is then requesting increase in nighttime seroquel to 400mg
stating this dose helped her with sleep in the past. We discussed risk of increasing so rapidly and agreed to increase to 250mg HS for now. We also discussed that her other medications for anxiety including buspar, clonidine and propranolol can
eventually be optimized in the future to help manage condition better in the long run. We discussed how restlessness, anxiety, insomnia, irritability etc are very common symptoms during acute withdrawal period and protocol is being followed to
manage them. She understands. She states she is willing to stay and understands that plan is for transfer to [facility] from here when medically stable.
A/P- 39 yo female with extensive opioid and benzo misuse disorders and active withdrawal/confusion. Continue withdrawal management protocol. Increase HS seroquel to 250mg. Start Seroquel 25mg q6 hours PRN anxiety. Check EKG in Am for qtc monitoring.
Give nicotine gum in addition to patch.There is room for further dose optimization of psychiatric medications in the future but would hold off until acute withdrawal/delirium period has resolved before considering changes. Will continue to monitor.
[2025-05-25] MEDS: SEROQUEL 25 MG PO (14:46)
--- NOTE | 2025-05-25 14:50 | PTCARENOTE ---
Pt rang call karime and requested to speak with nursing supervisor orchard. Pt stated that she wants to go outside to smoke and needs to speak with supervisor orchard. This nurse had previously educated Pt on smoking policy and that she was not allowed to leave the
property with her central line and in her current state while receiving treatment here. Pt currently wearing 21 Nicotine patch; Nursing supervisor orchard notified and s/w Pt - Pt was offered PRN anxiety meds on NOV and the option to get an order for
nicotine gum - Pt refused interventions and requested to sign out AMA. Hospitalist and residents made aware - discussed options with Pt; Pt agreed to wait until she spoke with psychiatrist before leaving. Dr. Oseguera came to speak with Pt and she
agreed to stay. New PRN seroquel administered and nicotine gum provided. Will continue to monitor and assess.
[2025-05-25] MEDS: BENADRYL 25 MG IV (17:46)
[2025-05-25] MEDS: LOVENOX 40 MG SC (17:46)
[2025-05-25] MEDS: SEROQUEL 250 MG PO (20:24)
[2025-05-25] MEDS: NEURONTIN 800 MG PO (20:26)
[2025-05-25] MEDS: SENOKOT-S 1 TABLET PO (20:26)
--- NOTE | 2025-05-25 21:55 | PTCARENOTE ---
Received pt at change of shift. Drowsy but easily arousable. Fully oriented. Slightly diaphoretic. ST on monitor. Able to take all medications. Pt states that she found out her boyfriend was cheating on her with her friend and saw them when
she drove home earlier. When reminded that she in fact did NOT leave the hospital today she appeared to be surprised and said, 'there I go hallucinating again.' Pt able to go back to sleep with little difficulty. Bed alarm active. Call schaffer
within reach.
[2025-05-25] MEDS: NSS 250 IV (22:40)
--- NOTE | 2025-05-25 22:51 | PTCARENOTE ---
BPs soft 80s/60s with MAPs in the high 60s. LICENSING MANAGER notified. 250 ml bolus ordered; infusing now.
[2025-05-26] VITALS (9 sets, daily range): BP systolic 100–144; BP diastolic 71–106
[2025-05-26] MEDS: TYLENOL PO (00:39)
[2025-05-26] MEDS: UNASYN IV ×3 (03:47→16:57)
[2025-05-26 04:39] LABS: Hematocrit 31.1 % (37.0-47.0); Hemoglobin 9.9 g/dL (12.0-16.0); Mean Corp Hgb Conc. 31.8 g/dL (33.0-37.0); Mean Corpuscular Volume 76.4 fL (81.0-99.0); Nucleated Red Blood Cells % 0 %; Platelet Count 409 10^3/uL (130-400); Red Cell Dist. Width 16.9 % (11.5-14.5)
[2025-05-26 04:51] LABS: ALT (SGPT) < 10 U/L (0-35); AST (SGOT) 20 U/L (14-36); Albumin 3.2 g/dl (3.5-5.0); Alkaline Phosphatase 57 U/L (38-126); Blood Urea Nitrogen 21 mg/dl (7-17); Calcium 8.0 mg/dl (8.4-10.2); Carbon Dioxide 31 mmol/L (22-30); Chloride 102 mmol/L (98-107); Estimated Creatinine Clearance 119 ml/min; Glucose 97 mg/dl (70-99); Potassium 3.9 mmol/L (3.5-5.1); Sodium 133 mmol/L (135-145); Total Protein 6.1 g/dl (6.3-8.2); eGFR > 60.00
[2025-05-26] MEDS: SUBUTEX 2 MG SL ×3 (06:03→16:58)
--- NOTE | 2025-05-26 07:21 | W.PN.HOSP.TC ---
Today's Communication/Plan
-
telemetry
PT consult
IV Iron
MRI with and w/o contrast of left index finger+left tibia
Assessment / Plan
Assessment / Plan
#History of fentanyl/xylazine overdose
# Acute narcotic withdrawal
-Buprenorphine, IV fluid, Antiemetic, clonidine, oxycodone
-COWS scoring 9
-Following Buprenorphine Microdosing protocol
-Supportive Care, Monitor VS
-05/23 1 mg IV dilaudid once
-Monitor K level-- repleted
-Psych TT: 200 mg Seroquel for sleeping difficulty +50 mg
-Ordered ECG- QTc 465
-Simethicon prn, Senna BID
-05/26- Seroquel 25mg PRN
-Consult PT
-move to telemetry
#Cellulitis- left index finger erythema, swelling
-leukocytosis
- nose swab No MRSA
-blood cx- Staph. epidermidis- ID consulted for drug use bacteremia-> contamination (?)-> repeated (24h (-))
-ordered MRI with and w/o contrast for left index finger + left tibia
#Microcytic anemia
-Replete Iron IV
#Multiple Skin wounds from Xylazine
-Wound Care Consult
-Dressing as indicated
-Continue Ampicillin Sodium/Sulbactam Sodium
-Mupirocin
-ID- several of wounds need further debridement--consult Plastic surgery
#Hallucination
-Consulted psychiatry
#Vaginal discharge
-Wants to be treated for Chlamydia, Gonorrhea
-Doxycycline 100mg BID, 7Days
-Ceftriaxone 500mg, IM once
#New back pain
- DD: Bacteremia--> Abcess? Osteomyelitis?
-MRI lumbar spine w/o contrast- normal findings
#History of multiple DVT's
-Enoxaparin Sodium
-records?
#Depression
cont seroquel, sertraline
DVT prophylaxis-levenox
Code status- full code
Anticipated Discharge: 24 - 48 hours
Subjective/Interval History
-
Date of Service: May 26, 2025
Yesterday she has been requesting cigarettes and to take her outside. When declined, she wanted to leave against medical advise and wished going to the detention. She was offered nicotine gums and psych consulted. She decided to stay.
Today she reports feeling hopeless, depressed and miserable. She was able to sleep good last night. She feels nausea, gas symptoms improved and denies vomiting. No hallucinations since this morning. She broke her tooth while chewing on fruit. Denies
toothache.
Objective Data
-
Labs:
Laboratory Results
05/26/25
03:51
WBC 6.8
Hgb 9.9 L
Hct 31.1 L
Plt Count 409 H
Sodium 133 L
Potassium 3.9
Chloride 102
Carbon Dioxide 31 H
BUN 21 H
Creatinine 0.6
Glucose 97
Calcium 8.0 L
Total Bilirubin 0.3
AST 20
ALT < 10
Alkaline Phosphatase 57
Vital Signs:
Vital Signs
Temp Pulse Resp BP Pulse Ox
97.9 F 104 17 123/90 98
05/26/25 03:08 05/26/25 04:00 05/26/25 04:00 05/26/25 04:00 05/25/25 21:17
I&O
05/25/25 05/26/25 05/27/25
06:59 06:59 06:59
Intake Total 2160 / 2160 490 / 490
Output Total 450 / 450
Balance 1710 / 1710 490 / 490
Review of Systems
-
History Source: Patient
Constitutional: Reports Weakness
EENT: Reports No Symptoms Reported
Respiratory: Reports No Symptoms
Cardiac: Reports No Symptoms
Abdomen/GI: Reports Abdominal Pain and Nausea
Breast: Reports No Symptoms
Genitourinary: Reports No Symptoms
Musculoskeletal: Reports Muscle Weakness
Skin: Reports Rash (wounds)
Neuro: Reports No Symptoms
Endocrine: Reports No Symptoms
Hematologic / Lymphatic: Reports No Symptoms
Psych: Reports Anxious
Physical Exam
-
General: Appears in Distress
HEENT: Normocephalic and Atraumatic
Respiratory: Clear to Auscultation
Cardiac: S1/S2 and Tachycardic
Breast: Skin Changes
GI: Soft, Nondistended and Tender
Rectal: Deferred by Provider
Musculoskeletal: No Edema
Skin: Warm and Other (multiple ulcers all over the skin)
Neuro: AO x 3
Psych: Agitated, Depressed, Anxious and Other (hallucinations)
[2025-05-26] MEDS: BACTROBAN 2% OINTMENT 1 APPLIC TOPICAL (08:27)
[2025-05-26] MEDS: NEURONTIN 800 MG PO ×2 (08:28→22:23)
[2025-05-26] MEDS: NICODERM TRANSDERMAL 21 MG TRANSDERM ×2 (08:28→22:19)
[2025-05-26] MEDS: VIBRAMYCIN 100 MG PO ×2 (08:28→22:20)
[2025-05-26] MEDS: MYLICON 80 MG PO ×2 (08:29→22:20)
[2025-05-26] MEDS: SUBUTEX 16 MG SL (08:29)
[2025-05-26] MEDS: CATAPRES 0.1 MG PO ×3 (08:29→22:32)
[2025-05-26] MEDS: TYLENOL 1000 MG PO ×2 (08:29→15:25)
[2025-05-26] MEDS: MIRALAX PO (08:30)
[2025-05-26] MEDS: INDERAL 10 MG PO ×2 (08:30→22:32)
[2025-05-26] MEDS: SENOKOT-S 1 TABLET PO ×2 (08:30→22:19)
[2025-05-26] MEDS: PROTONIX 20 MG PO (08:30)
[2025-05-26] MEDS: ZOLOFT 100 MG PO (08:30)
[2025-05-26] MEDS: BUSPAR 5 MG PO ×2 (08:30→22:21)
[2025-05-26] MEDS: ATIVAN 2 MG PO ×3 (08:34→17:15)
[2025-05-26] MEDS: BENADRYL 25 MG IV ×2 (09:01→22:55)
[2025-05-26 09:04] LABS: Iron 30 ug/dl (37-170)
[2025-05-26 09:13] LABS: Total Iron Binding Capacity 330 ug/dl (265-497)
--- NOTE | 2025-05-26 09:29 | PTCARENOTE ---
Recd a call from Patrick Hung from [facility] [employer] [phone]. He states that someone needs to call [facility] Office when she is leaving, planned D/C or AMA. The number during business hours is [phone] after hours/weekends
[phone]. This info shared with Nursing Sup and Managers.
--- NOTE | 2025-05-26 09:32 | W.PN.ID1 ---
Date of Service
Date of Service: May 26, 2025
Today's Communication
Continue Unasyn. Local care to wounds. Check MRI as below�
Assessment / Plan
IVDA and acute withdrawal
Leukocytosis secondary to above
Initial fever without recurrence
Positive blood culture (1 of 4 bottles) with Staph. Epidermidis from ER draw. Contaminant.
Multiple wounds (right leg, left merino, left index finger)
Hx DVT
Anxiety/depression
Recommendations:
Positive blood culture is most likely a contaminant. No need to treat.
Continue with Unasyn for the present for skin wounds.
Would continue with local care to the area. Several of these may ultimately need further debridement.
Hep C antibody negative. HIV antibody pending.
Patient reports that wounds have been present for approximately 4 months. Given that they have been present for so long, will check MRI of left mid tibia, along with left index finger to assure no underlying osteomyelitis.
����������������������������������������������������������
Chief Complaint
-: Bacteremia and Other (Multiple wounds from 'Tranq' injection)
Subjective / Review of Systems
Patient seen and examined. Reports some nausea today. Denies wound pain except when touched.
Review of Systems: No Fever and No Chills
Vital Signs / Physical Exam
Vital Signs
Vital Signs
Temp Pulse Resp BP Pulse Ox
98.2 F 122 17 144/106 98
05/26/25 07:36 05/26/25 08:30 05/26/25 04:00 05/26/25 08:30 05/25/25 21:17
Physical Exam
Constitutional: Chronically Ill and Non-toxic
Cardiovascular: Regular Rate and S1/S2
Pulmonary: Non Labored
Gastrointestinal: Non Distended
Physical Exam:
Wounds:
Left proximal tibia area with unstageable wound with overlying eschar. Freely movable and not adherent to bone. Little periwound erythema.
Right lateral calf area wound very superficial with slough and granular base. Minimal purulence.
Left index finger with dry eschar and some dermal gangrene. Minimal periwound erythema.
Objective Data
Lab Data
Lab Results
05/26/25 03:51
05/26/25 03:51
ESR 37 mm/hour (0-20) H 05/22/25 03:42
Estimated Creat Clear 119 ml/min 05/26/25 03:51
Total Bilirubin 0.3 mg/dl (0.2-1.3) 05/26/25 03:51
AST 20 U/L (14-36) 05/26/25 03:51
ALT < 10 U/L (0-35) 05/26/25 03:51
Alkaline Phosphatase 57 U/L (38-126) 05/26/25 03:51
C-Reactive Protein < 5.00 mg/L (0.0-10.00) 05/22/25 03:42
Most recent labs reviewed.
Micro Results:
05/25/25 04:45 Blood Culture - Preliminary
Blood/Venous No Growth in 24 hours- Final report to follow
05/22/25 03:42 Blood Culture - Preliminary
Blood/Venous No Growth in 4 days- Final report to follow
05/23/25 13:18 Blood Culture - Preliminary
Blood/Venous No Growth in 48 hours- Final report to follow
05/22/25 03:45 Blood Culture - Preliminary
Blood/Venous Staphylococcus epidermidis
Additional testing on request
Gram Stain - Preliminary
05/22/25 07:57 MRSA Screen - Final
Nose No Methicillin Resistant Staphylococcus aureus isolated.
05/22/2025 X-ray left tib-fib: no significant soft tissue swelling is appreciated. No osteoblastic or osteoclastic lesions are noted. No significant periosteal reaction.
05/22/2025 X-ray right leg: No significant osteoblastic or osteolytic lesions are seen. Small osteophytes within the medial compartment of the right knee.
Care Review
Plan reviewed with: Physician (Resident)
[2025-05-26] MEDS: ZOFRAN 4 MG IV (09:38)
[2025-05-26 10:12] LABS: Ferritin 13.0 ng/ml (6.24-137)
[2025-05-26 10:43] LABS: Folate 7.5 ng/ml (2.76-20); Vitamin B12 501 pg/ml (239-931)
--- NOTE | 2025-05-26 11:55 | PTCARENOTE ---
Rec'd pt this AM. multiple complaints of being uncomfortable but relieved with current pain regimen. Pt with nausea and vomitting, relieved with zofran and pt able to eat all her lunch meal. Pt given PRN meds as ordered with relief.
[2025-05-26] MEDS: FERRLECIT 110 MG IV (13:55)
[2025-05-26] MEDS: THERAGRAN 1 TABLET PO (15:25)
--- NOTE | 2025-05-26 15:27 | CM ---
Opiate withdrawal. Wounds. IV/AB. Discharge POC: [facility] following. Therapy no skilled PT needs.
[2025-05-26] MEDS: NEURONTIN PO (15:29)
[2025-05-26] MEDS: LOVENOX 40 MG SC (17:15)
--- NOTE | 2025-05-26 17:46 | PTCARENOTE ---
Pt downgraded to tele and will be transferred to [facility] after she eats her dinner. Report given to HALLE Sargent.
[2025-05-26] MEDS: SEROQUEL 250 MG PO (22:26)
[2025-05-27] VITALS (7 sets, daily range): BP systolic 131–160; BP diastolic 81–115; PULSE 114; O2SAT 99
[2025-05-27] MEDS: UNASYN IV ×5 (00:10→22:09)
[2025-05-27] MEDS: TYLENOL PO ×5 (00:10→23:10)
[2025-05-27 04:40] LABS: Hematocrit 29.7 % (37.0-47.0); Hemoglobin 9.3 g/dL (12.0-16.0); Mean Corp Hgb Conc. 31.3 g/dL (33.0-37.0); Mean Corpuscular Volume 76.3 fL (81.0-99.0); Platelet Count 395 10^3/uL (130-400); Red Cell Dist. Width 17.2 % (11.5-14.5)
[2025-05-27 05:06] LABS: Blood Urea Nitrogen 18 mg/dl (7-17); Calcium 8.6 mg/dl (8.4-10.2); Carbon Dioxide 28 mmol/L (22-30); Chloride 104 mmol/L (98-107); Estimated Creatinine Clearance 119 ml/min; Glucose 99 mg/dl (70-99); Potassium 4.3 mmol/L (3.5-5.1); Sodium 134 mmol/L (135-145); eGFR > 60.00
[2025-05-27] MEDS: MYLICON 80 MG PO ×2 (08:15→20:01)
[2025-05-27] MEDS: BUSPAR 5 MG PO (08:16)
[2025-05-27] MEDS: PROTONIX 20 MG PO (08:16)
[2025-05-27] MEDS: SUBUTEX 16 MG SL (08:16)
[2025-05-27] MEDS: CATAPRES 0.1 MG PO ×3 (08:16→22:10)
[2025-05-27] MEDS: INDERAL 10 MG PO ×2 (08:17→20:01)
[2025-05-27] MEDS: ZOLOFT 100 MG PO (08:17)
[2025-05-27] MEDS: THERAGRAN 1 TABLET PO (08:17)
[2025-05-27] MEDS: VIBRAMYCIN 100 MG PO ×2 (08:17→20:00)
[2025-05-27] MEDS: SENOKOT-S 1 TABLET PO ×2 (08:18→20:05)
[2025-05-27] MEDS: NICORETTE 2 MG PO ×2 (08:18→17:28)
[2025-05-27] MEDS: MIRALAX PO (08:19)
[2025-05-27] MEDS: BACTROBAN 2% OINTMENT 1 APPLIC TOPICAL (08:20)
[2025-05-27] MEDS: NEURONTIN PO (08:22)
--- NOTE | 2025-05-27 09:33 | PTOTSP ---
Pt is able to get OOB and ambulate independently without an assistive device. No acute PT needs were identified. PT will sign off.
[2025-05-27] MEDS: BENADRYL 25 MG IV ×2 (10:12→17:27)
--- NOTE | 2025-05-27 10:17 | W.PN.HOSP.TC ---
Today's Communication/Plan
-
MRI pending
Assessment / Plan
Assessment / Plan
#History of fentanyl/xylazine overdose
# Acute narcotic withdrawal
-Buprenorphine, IV fluid, Antiemetic, clonidine, oxycodone
-COWS scoring 9
-Following Buprenorphine Microdosing protocol
-Supportive Care, Monitor VS
-05/23 1 mg IV dilaudid once
-Monitor K level-- repleted
-Psych TT: 200 mg Seroquel for sleeping difficulty +50 mg
-Ordered ECG- QTc 465
-Simethicon prn, Senna BID
-05/26- Seroquel 25mg PRN
-Consult PT
-move to telemetry
#Cellulitis- left index finger erythema, swelling
-leukocytosis
- nose swab No MRSA
-blood cx- Staph. epidermidis- ID consulted for drug use bacteremia-> contamination (?)-> repeated (24h (-))
-ordered MRI with and w/o contrast for left index finger + left tibia
-MRI left tibia- moderate cellulitis
-MRI left index finger- pending
#Microcytic anemia
-Replete Iron IV D#2
#Multiple Skin wounds from Xylazine
-Wound Care Consult
-Dressing as indicated
-Continue Ampicillin Sodium/Sulbactam Sodium
-Mupirocin
-ID- several of wounds need further debridement--consult Plastic surgery
#Hallucination
-Consulted psychiatry
#Vaginal discharge
-Wants to be treated for Chlamydia, Gonorrhea
-Doxycycline 100mg BID, 7Days
-Ceftriaxone 500mg, IM once
#New back pain
- DD: Bacteremia--> Abcess? Osteomyelitis?
-MRI lumbar spine w/o contrast- normal findings
#History of multiple DVT's
-Enoxaparin Sodium
-records?
#Depression
cont seroquel, sertraline
DVT prophylaxis-levenox
Code status- full code
Anticipated Discharge: 24 - 48 hours
Subjective/Interval History
-
Date of Service: May 27, 2025
Overnight she had 2 hallucination episodes. She still has nausea no vomiting. Cravings decreased than yesterday. LLQ abdominal pain and back pain.
Objective Data
-
Labs:
Laboratory Results
05/27/25
04:03
WBC 7.4
Hgb 9.3 L
Hct 29.7 L
Plt Count 395
Sodium 134 L
Potassium 4.3
Chloride 104
Carbon Dioxide 28
BUN 18 H
Creatinine 0.5 L
Glucose 99
Calcium 8.6
Vital Signs:
Vital Signs
Temp Pulse Resp BP Pulse Ox
98.0 F 114 18 160/109 99
05/27/25 07:00 05/27/25 07:00 05/27/25 07:00 05/27/25 07:00 05/27/25 07:00
I&O
05/26/25 05/27/25 05/28/25
06:59 06:59 06:59
Intake Total 490 / 490 120 / 120
Balance 490 / 490 120 / 120
Review of Systems
-
History Source: Patient
Constitutional: Reports Weakness
EENT: Reports No Symptoms Reported
Respiratory: Reports No Symptoms
Cardiac: Reports No Symptoms
Abdomen/GI: Reports Abdominal Pain and Nausea
Breast: Reports No Symptoms
Genitourinary: Reports No Symptoms
Musculoskeletal: Reports No Symptoms
Skin: Reports Rash (wounds)
Neuro: Reports No Symptoms
Endocrine: Reports No Symptoms
Hematologic / Lymphatic: Reports No Symptoms
Physical Exam
-
General: Comfortable
HEENT: Normocephalic and Atraumatic
Respiratory: Clear to Auscultation
Cardiac: S1/S2 and Tachycardic
Breast: Skin Changes
GI: Soft, Nondistended and Tender
Rectal: Deferred by Provider
Musculoskeletal: No Edema
Skin: Warm and Other (multiple ulcers all over the skin)
Neuro: AO x 3
Psych: Calm and Other (hallucinations)
[2025-05-27] MEDS: NICODERM TRANSDERMAL TRANSDERM (10:27)
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
[2025-05-27] MEDS: SUBUTEX 2 MG SL ×3 (12:58→22:44)
[2025-05-27] MEDS: FERRLECIT 110 MG IV (13:01)
[2025-05-27] MEDS: ATIVAN 1 MG PO (13:09)
[2025-05-27] MEDS: LOVENOX 40 MG SC (17:08)
[2025-05-27] MEDS: COMPAZINE 5 MG IV (20:45)
[2025-05-27] MEDS: SEROQUEL 250 MG PO (22:13)
[2025-05-28] MEDS: ATIVAN 1 MG PO (01:00)
[2025-05-28] MEDS: BENADRYL 25 MG IV ×2 (01:01→11:42)
[2025-05-28] MEDS: ZANAFLEX 2 MG PO (01:44)
[2025-05-28] MEDS: TUMS CHEWABLE TABLET 200 MG PO (02:42)
[2025-05-28 02:49] VITALS: BP 136/101
[2025-05-28] MEDS: UNASYN IV ×2 (03:44→09:28)
[2025-05-28 05:03] LABS: Hematocrit 30.6 % (37.0-47.0); Hemoglobin 9.7 g/dL (12.0-16.0); Mean Corp Hgb Conc. 31.7 g/dL (33.0-37.0); Mean Corpuscular Volume 75.7 fL (81.0-99.0); Platelet Count 392 10^3/uL (130-400); Red Cell Dist. Width 17.2 % (11.5-14.5)
[2025-05-28 05:27] LABS: Blood Urea Nitrogen 14 mg/dl (7-17); Calcium 8.7 mg/dl (8.4-10.2); Carbon Dioxide 25 mmol/L (22-30); Chloride 104 mmol/L (98-107); Estimated Creatinine Clearance 119 ml/min; Glucose 113 mg/dl (70-99); Potassium 4.4 mmol/L (3.5-5.1); Sodium 133 mmol/L (135-145); eGFR > 60.00
[2025-05-28 07:00] VITALS: BP 157/110
--- NOTE | 2025-05-28 07:18 | W.PN.HOSP.TC ---
Today's Communication/Plan
-
Discharge
Clonidine 0.2mg TID
Buprenorphine 8mg TID
Doxycycline complete 7days course
Stop IV iron start PO Ferrous sulphate Q48h
Assessment / Plan
Assessment / Plan
#History of fentanyl/xylazine overdose
# Acute narcotic withdrawal
-Buprenorphine, IV fluid, Antiemetic, clonidine, oxycodone
-COWS scoring 9
-Following Buprenorphine Microdosing protocol
-Supportive Care, Monitor VS
-05/23 1 mg IV dilaudid once
-Monitor K level-- repleted
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
-Ordered ECG- QTc 465
-Consult PT
-move to telemetry
-Buprenorphine 8mg TID
-Clonidine 0.2 TID
#Cellulitis- left index finger erythema, swelling
-leukocytosis
- nose swab No MRSA
-blood cx- Staph. epidermidis- ID consulted for drug use bacteremia-> contamination (?)-> repeated (24h (-))
-ordered MRI with and w/o contrast for left index finger + left tibia
-MRI left tibia- moderate cellulitis
-MRI left index finger- cellulitis. No osteomyelitis or septic arthritis.
#Microcytic anemia
-Replete Iron IV D#3- discontinued
-Ferrous sulphate 325mg PO, Q48h
#Multiple Skin wounds from Xylazine
-Wound Care Consult
-Dressing as indicated
-Continue Ampicillin Sodium/Sulbactam Sodium #D7- discontinued
-Start Augmentin PO, QD for 3 days
-Mupirocin
-ID- several of wounds need further debridement
#Vaginal discharge
-Wants to be treated for Chlamydia, Gonorrhea
-Doxycycline 100mg BID, 7Days
-Ceftriaxone 500mg, IM once
#New back pain
- DD: Bacteremia--> Abcess? Osteomyelitis?
-MRI lumbar spine w/o contrast- normal findings
#History of multiple DVT's
-Enoxaparin Sodium
-records?
#Depression
cont seroquel, sertraline
DVT prophylaxis-levenox
Code status- full code
Anticipated Discharge: Today
Subjective/Interval History
-
Date of Service: May 28, 2025
She complaints about vomiting at 4am once and had heartburn. Denies hallucinations, pain. Still has a lot of fentanyl cravings.
Objective Data
-
Labs:
Laboratory Results
05/28/25
04:42
WBC 8.9
Hgb 9.7 L
Hct 30.6 L
Plt Count 392
Sodium 133 L
Potassium 4.4
Chloride 104
Carbon Dioxide 25
BUN 14
Creatinine 0.5 L
Glucose 113 H
Calcium 8.7
Vital Signs:
Vital Signs
Temp Pulse Resp BP Pulse Ox
98.5 F 105 20 136/101 99
05/28/25 02:49 05/28/25 02:49 05/28/25 02:49 05/28/25 02:49 05/28/25 02:49
I&O
05/27/25 05/28/25 05/29/25
06:59 06:59 06:59
Intake Total 120 / 120 600 / 600 240 / 240
Balance 120 / 120 600 / 600 240 / 240
Review of Systems
-
History Source: Patient
Constitutional: Reports Weakness
EENT: Reports No Symptoms Reported
Respiratory: Reports No Symptoms
Cardiac: Reports No Symptoms
Abdomen/GI: Reports Vomiting
Breast: Reports No Symptoms
Genitourinary: Reports No Symptoms
Musculoskeletal: Reports No Symptoms
Skin: Reports Rash (wounds)
Neuro: Reports No Symptoms
Endocrine: Reports No Symptoms
Hematologic / Lymphatic: Reports No Symptoms
Physical Exam
-
General: Comfortable
HEENT: Normocephalic and Atraumatic
Respiratory: Clear to Auscultation
Cardiac: S1/S2 and Tachycardic
Breast: Skin Changes
GI: Soft, Nontender and Nondistended
Rectal: Deferred by Provider
Musculoskeletal: No Edema
Skin: Warm and Other (multiple ulcers all over the skin)
Neuro: AO x 3
Psych: Calm and Other (hallucinations)
[2025-05-28] MEDS: CATAPRES 0.1 MG PO (07:37)
[2025-05-28] MEDS: MIRALAX PO (07:38)
[2025-05-28] MEDS: NICODERM TRANSDERMAL 21 MG TRANSDERM (07:38)
[2025-05-28] MEDS: INDERAL 10 MG PO (07:38)
[2025-05-28] MEDS: MYLICON 80 MG PO (07:38)
[2025-05-28] MEDS: VIBRAMYCIN 100 MG PO (07:39)
[2025-05-28] MEDS: SENOKOT-S 1 TABLET PO (07:39)
[2025-05-28] MEDS: THERAGRAN 1 TABLET PO (07:39)
[2025-05-28] MEDS: PROTONIX 20 MG PO (07:39)
[2025-05-28] MEDS: SUBUTEX 16 MG SL (07:39)
[2025-05-28] MEDS: ZOLOFT 100 MG PO (07:39)
[2025-05-28] MEDS: TYLENOL PO (09:22)
--- NOTE | 2025-05-28 10:34 | W.PN.UPDATE ---
Update Note
Progress Note Update
spoke with dr ferguson. patient returning to [facility] today. suggested considering increase anjelica dose of buprenorphine to 24 mg. he will consider. also note frequency of prn use. limiting prn's prescribed would be prudent. psych will sign off.
--- NOTE | 2025-05-28 10:58 | WOUNDNOTE ---
[facility] RN NOTE: Followed up with patient as requested by Hospitalist as patient will likely be discharged over the weekend. Left index finger positive for cellulitis per chart review, but appears to be progressing toward healing when compare to picture
from 05/22. Wound care completed for lower leg wounds. Left leg wound with adherent eschar with loose edges. Right leg with macerated edges. All wound orders continue to be appropriate. Discharge updated. [facility]se NERI update. Will sign off.
[2025-05-28] MEDS: BACTROBAN 2% OINTMENT 1 APPLIC TOPICAL (11:43)
[2025-05-28 11:51] VITALS: BP 160/111
--- NOTE | 2025-05-28 11:55 | WOUNDNOTE ---
LEFT INDEX FINGER
--- NOTE | 2025-05-28 11:55 | WOUNDNOTE ---
LEFT INDEX FINGER
--- NOTE | 2025-05-28 11:56 | WOUNDNOTE ---
LEFT LOWER LEG WOUND
--- NOTE | 2025-05-28 11:56 | WOUNDNOTE ---
RIGHT LOWER LEG WOUND
--- NOTE | 2025-05-28 11:56 | WOUNDNOTE ---
RIGHT LOWER LEG WOUND
[2025-05-28] MEDS: FEOSOL 325 MG PO (13:30)
[2025-05-28] MEDS: COMPAZINE 5 MG IV (13:31)
[2025-05-28] MEDS: SUBUTEX 2 MG SL (13:38)
[2025-05-28 15:00] VITALS: BP 159/111
--- NOTE | 2025-05-28 15:12 | W.DCSUMMARY ---
Documented by User: Raghu Mccord MD, Resident 05/28/25 17:12
Discharge Summary
Discharge Data
Date of Admission: 05/22/25
Date of Discharge: 05/28/25
-
Pending Results: No
Hospital Course
Discharging Physician : Dr. Raghu Lopez
Disposition : Police custody
Primary care physician : Dr. Rodolfo Hansen
Principal Discharge diagnosis : Fentanyl/Xylazine withdrawal/ OUD
Chronic Discharge diagnosis :
Nonpurulent cellulitis of left index finger and left merino
Sexually-transmitted infection
Iron deficiency anemia
Anxiety/depression
Hospital Course :
The patient was admitted on 05/22/2025 with acute fentanyl/xylazine withdrawal and multiple skin wounds related to xylazine injections.Buprenorphine micro-dosing protocol was initiated, and her COWS scores gradually improved. Psychiatry was
consulted for management of hallucinations and withdrawal symptoms. She was started on IV Unasyn and mupirocin for skin wounds. MRI of the left lower extremity and left index finger showed cellulitis without acute osteomyelitis. Blood cultures
remained negative.
She received 2 doses of IV Ferric Gluconate for iron deficiency anemia.
She was also treated for suspected STI with ceftriaxone 500 mg IM and doxycycline 100 mg PO every 12 hours for 7 days.
She received nicotine replacement therapy (gum and patches) and was counseled on smoking cessation.
Important imaging findings :
Left LE MRI: MODERATE CELLULITIS in the anteromedial subcutaneous fat of the LEFT LOWER LEG surrounding a soft tissue wound overlying the proximal tibial diaphysis.
Left UE MRI: Cellulitis of the index finger.
Discharge Plan
-
Patient Disposition: Other
Discharge Diagnosis/Procedures: Opioid use disorder with withdrawal
Nonpurulent cellulitis of left index finger and left merino
Sexually-transmitted infection
Iron deficiency anemia
Anxiety/depression
Condition: Fair
Diet: No restrictions
Activity: As tolerated
Driving Restrictions: As prior to admission
Bathing Restrictions: None
Blood Work: CMP, CBC with differential, Mag, Phos and 5 to 7 days
Activity Restrictions/Additional Instructions:
Wound Care Instructions
Daily wound care-clean wounds with Vashe wound cleanser:
L index finger-apply Bactroban ointment, Xeroform gauze, cover with gauze, secure with non irritating tape or stockinet.
L merino-Xeroform gauze, abd pad secured with paper tape or silicone border foam.
R merino-Xeroform gauze, alginate, ABD pad secured with paper tape or silicone border foam.
Follow up with wound rn coronary care unit or at wound care center call for an appointment.
Referrals:
China Oseguera DO [Active, Psychiatry]
Rodolfo Hansen MD [Family Provider, Internal Medicine]
Additional Discharge Medication Instructions: Continue Augmentin 875-125 mg every 12 hours for 3 more days after discharge
Continue doxycycline 100 mg every 12 hours for 1 more day after discharge
Continue clonidine at 0.2 mg 3 times daily
Continue buprenorphine sublingual 8 mg 3 times daily for opiate use disorder maintenance therapy and chronic analgesic therapy
Continue ferrous sulfate tablet every other day
Continue nicotine patch and nicotine gum as needed
Continue quetiapine 250 mg nightly for sleep aid
As needed bowel regimen with senna and MiraLAX
Patient is cleared for incarceration
Prescriptions:
New
amoxicillin-pot clavulanate 875-125 mg Tablet
1 tab PO Q12 3 Days Qty: 6 0RF
mupirocin 2 % Ointment
1 applic topical BID 7 Days Qty: 15 0RF
clonidine HCl 0.2 mg Tablet
0.2 mg PO TID 30 Days Qty: 90 0RF
ferrous sulfate [FeroSul] 325 mg (65 mg iron) Tablet
325 mg PO Q48H 30 Days Qty: 15 0RF
polyethylene glycol 3350 17 gram Powder In Packet
17 g PO DAILY PRN (Reason: Constipation) 30 Days Qty: 30 0RF
nicotine 21 mg/24 hr Patch 24 Hour
21 mg transdermal DAILY Qty: 28 0RF
nicotine (polacrilex) 2 mg Gum
2 mg PO Q2HPRN PRN (Reason: craving) Qty: 50 0RF
pantoprazole 20 mg Tablet,Delayed Release (Dr/Ec)
20 mg PO DAILY 30 Days Qty: 30 0RF
sennosides-docusate sodium 8.6-50 mg Tablet
1 tab PO BID PRN (Reason: Constipation) Qty: 30 0RF
quetiapine 100 mg Tablet
250 mg PO HS 30 Days Qty: 75 0RF
buprenorphine HCl 8 mg Tablet, Sublingual
8 mg sublingual TID 30 Days Qty: 90 0RF
multivitamin with folic acid [Tab-A-João] 400 mcg Tablet
1 tab PO DAILY 30 Days Qty: 30 0RF
doxycycline hyclate 100 mg Capsule
100 mg PO Q12 3 Days Qty: 6 0RF
Continued
sertraline [Zoloft] 100 mg Tablet
100 mg PO DAILY
propranolol 10 mg tablet
10 mg PO BID
Discontinued
clonidine HCl 0.1 mg Tablet
0.1 mg PO TID
quetiapine [Seroquel] 200 mg Tablet
200 mg PO HS
buspirone 5 mg tablet
5 mg PO BID
gabapentin 400 mg capsule
800 mg PO TID
buprenorphine-naloxone 8-2 mg film
1 film TID
Discharge Orders:
Discharge Patient (As Directed); Ordered 05/28/25
Ordered By: Ariel Lopez
Discharge Date and Time
Discharge Date/Time: 05/28/25 15:53
Print Language: FAROESE

Documented by User: Ariel Lopez DO 05/29/25 14:50
Discharge Summary
Discharge Data
Date of Admission: 05/22/25
Date of Discharge: 05/28/25
Total time spent discharging patient (in min): 33
Discharge Plan
-
Patient Disposition: Other
Discharge Diagnosis/Procedures: Opioid use disorder with withdrawal
Nonpurulent cellulitis of left index finger and left merino
Sexually-transmitted infection
Iron deficiency anemia
Anxiety/depression
Condition: Fair
Diet: No restrictions
Activity: As tolerated
Driving Restrictions: As prior to admission
Bathing Restrictions: None
Blood Work: CMP, CBC with differential, Mag, Phos and 5 to 7 days
Activity Restrictions/Additional Instructions:
Wound Care Instructions
Daily wound care-clean wounds with Vashe wound cleanser:
L index finger-apply Bactroban ointment, Xeroform gauze, cover with gauze, secure with non irritating tape or stockinet.
L merino-Xeroform gauze, abd pad secured with paper tape or silicone border foam.
R merino-Xeroform gauze, alginate, ABD pad secured with paper tape or silicone border foam.
Follow up with wound rn coronary care unit or at wound care center call for an appointment.
Referrals:
China Oseguera DO [Active, Psychiatry]
Rodolfo Hansen MD [Family Provider, Internal Medicine]
Additional Discharge Medication Instructions: Continue Augmentin 875-125 mg every 12 hours for 3 more days after discharge
Continue doxycycline 100 mg every 12 hours for 1 more day after discharge
Continue clonidine at 0.2 mg 3 times daily
Continue buprenorphine sublingual 8 mg 3 times daily for opiate use disorder maintenance therapy and chronic analgesic therapy
Continue ferrous sulfate tablet every other day
Continue nicotine patch and nicotine gum as needed
Continue quetiapine 250 mg nightly for sleep aid
As needed bowel regimen with senna and MiraLAX
Patient is cleared for incarceration
Prescriptions:
New
amoxicillin-pot clavulanate 875-125 mg Tablet
1 tab PO Q12 3 Days Qty: 6 0RF
mupirocin 2 % Ointment
1 applic topical BID 7 Days Qty: 15 0RF
clonidine HCl 0.2 mg Tablet
0.2 mg PO TID 30 Days Qty: 90 0RF
ferrous sulfate [FeroSul] 325 mg (65 mg iron) Tablet
325 mg PO Q48H 30 Days Qty: 15 0RF
polyethylene glycol 3350 17 gram Powder In Packet
17 g PO DAILY PRN (Reason: Constipation) 30 Days Qty: 30 0RF
nicotine 21 mg/24 hr Patch 24 Hour
21 mg transdermal DAILY Qty: 28 0RF
nicotine (polacrilex) 2 mg Gum
2 mg PO Q2HPRN PRN (Reason: craving) Qty: 50 0RF
pantoprazole 20 mg Tablet,Delayed Release (Dr/Ec)
20 mg PO DAILY 30 Days Qty: 30 0RF
sennosides-docusate sodium 8.6-50 mg Tablet
1 tab PO BID PRN (Reason: Constipation) Qty: 30 0RF
quetiapine 100 mg Tablet
250 mg PO HS 30 Days Qty: 75 0RF
buprenorphine HCl 8 mg Tablet, Sublingual
8 mg sublingual TID 30 Days Qty: 90 0RF
multivitamin with folic acid [Tab-A-João] 400 mcg Tablet
1 tab PO DAILY 30 Days Qty: 30 0RF
doxycycline hyclate 100 mg Capsule
100 mg PO Q12 3 Days Qty: 6 0RF
Continued
sertraline [Zoloft] 100 mg Tablet
100 mg PO DAILY
propranolol 10 mg tablet
10 mg PO BID
Discontinued
clonidine HCl 0.1 mg Tablet
0.1 mg PO TID
quetiapine [Seroquel] 200 mg Tablet
200 mg PO HS
buspirone 5 mg tablet
5 mg PO BID
gabapentin 400 mg capsule
800 mg PO TID
buprenorphine-naloxone 8-2 mg film
1 film TID
Discharge Orders:
Discharge Patient (As Directed); Ordered 05/28/25
Ordered By: Ariel Lopez
Discharge Date and Time
Discharge Date/Time: 05/28/25 15:53
Print Language: FAROESE
--- NOTE | 2025-05-28 15:37 | CM ---
entered order for discharge.
Spoke with Manfred at [facility] she is not in there system .
Security here . Security called who will place her at appropriate facility.
[facility] is report [phone] and fax [phone].
PLAN Escorted by security to exit . Security called
== END 2025-05-28 15:53 | disposition other institution (70) | DRG 897 ==
LOC: 3 WEST ACU 05:06
PROVIDERS: ADMITTING PHYSICIAN Internal Medicine; ATTENDING PHYSICIAN Internal Medicine; CONSULT PHYSICIAN Internal Medicine Infectious Disease; CONSULT PHYSICIAN Psychiatry & Neurology Psychiatry; EMERGENCY PHYSICIAN Emergency Medicine; FAMILY PHYSICIAN Internal Medicine; OTHER PHYSICIAN Internal Medicine
DX: F11.23 Opioid dependence with withdrawal (principal); R78.81 Bacteremia; F13.20 Sedative, hypnotic or anxiolytic dependence, uncomplicated; L03.012 Cellulitis of left finger; D50.9 Iron deficiency anemia, unspecified; F41.9 Anxiety disorder, unspecified; F32.A Depression, unspecified; F17.200 Nicotine dependence, unspecified, uncomplicated; Z71.6 Tobacco abuse counseling; Z86.718 Personal history of other venous thrombosis and embolism; B95.7 Other staphylococcus as the cause of diseases classified elsewhere; D75.839 Thrombocytosis, unspecified; Z79.899 Other long term (current) drug therapy
CPT/HCPCS: 36556; 72148; 73130; 73223; 73590; 73723; 80048; 80053; 80306; 80307; 82248; 82607; 82728; 82746; 83540; 83550; 83735; 84100; 84703; 85025; 85027; 85652; 86140; 86704; 86706; 86803; 87040; 87070; 87154; 87205; 87389; 93005; 96372; 96374; 96375; 97162; 99285; A9575; J2916